=== PATIENT | female | born 1940 | race Caucasian/White ===

== ENCOUNTER 2018-12-01 23:38 | Inpatient (IN) | payer MEDICARE, OTHER ==
[~2018-12-01] VITALS: Ht 152.4 cm; Wt 69.9 kg
[2018-12-02] MEDS ORDERED: VALB40CA PO (02:30)
[2018-12-02] MEDS ORDERED: METF500T16 PO (02:30)
[2018-12-02] MEDS ORDERED: OMEG1CAP2 PO (02:30)
[2018-12-02] MEDS ORDERED: LATA2.5D3 EACHEYE (02:30)
[2018-12-02] MEDS ORDERED: ASPI-612 PO (02:30)
[2018-12-02] MEDS ORDERED: PALI3TAB2 PO (02:30)
[2018-12-02] MEDS ORDERED: RISP1TAB43 PO (02:30)
[2018-12-02] MEDS ORDERED: MELA3TAB56 PO (02:30)
[2018-12-02] MEDS ORDERED: COLE1TAB2 PO (02:30)
[2018-12-02] MEDS ORDERED: CARB15DR3 EACHEYE (02:30)
[2018-12-02] MEDS ORDERED: DONE5TAB56 PO (02:30)
[2018-12-02] MEDS ORDERED: TIOT18CA IH (02:30)
[2018-12-02] MEDS ORDERED: POLY17PO5 PO (02:30)
[2018-12-02] MEDS ORDERED: LEVO50TA5 PO (02:30)
--- NOTE | 2018-12-02 09:30 | NUR ---
Admission Note with Justification for Admission to [facility] Patient admitted to [facility] for protective oversight for emergency stabilization of acute psychiatric crisis. Pt admitted from: Home >Hospital ER Mode of arrival: EMS Accompanied By: Secure Transport Precipitating behaviors that initiated intake and admission: Description of failure of out patient attempts at stabilization in previous setting list behavior and medication trials:Risperdal Behaviors and assessment findings upon admission: Calm. Denies SI. Plan: Admit for protective oversight for adjustment and stabilization of medications, behaviors and mood. Intense treatment regimen including groups, medication adjustments, therapy, consistent regimen for ADL's, self care, and sleep hygiene. Daily monitoring by Inpatient staff, Psychiatry, and Medical Physician.
[2018-12-02 09:59] VITALS: BP 134/82
[2018-12-02] MEDS ORDERED: METHYL SALICYLATE/MENTHOL TOPICAL OINTMENT 57GM TUBE. TP PRN (11:30)
[2018-12-02] MEDS ORDERED: MAGNESIUM HYDROXIDE 2,400 MG/30 ML ORAL.SUSP. PO PRN (11:30)
[2018-12-02] MEDS ORDERED: MAG HYDROX/AL HYDROX/SIMETH 30 ML ORAL.SUSP PO PRN (11:30)
[2018-12-02] MEDS ORDERED: ACETAMINOPHEN 325 MG TABLET PO PRN (11:30)
[2018-12-02 14:51] LABS: BASO # 0.1 x10^3/uL (0.0-0.2); BASO % 1 % (0-3); EOS # 0.3 x10^3/uL (0.0-0.7); EOS % 2 % (0-3); HEMATOCRIT 35.5 % (36.0-47.0); HEMOGLOBIN 11.8 g/dL (12.0-15.5); LYMPH # 2.2 x10^3/uL (1.0-4.8); LYMPH % 15 % (24-48); MEAN CORPUSCULAR HEMOGLOBIN 31 pg (25-35); MEAN CORPUSCULAR HGB CONC 33 g/dL (31-37); MEAN CORPUSCULAR VOLUME 92 fL (79-100); MONO # 1.1 x10^3/uL (0.0-1.1); MONO % 8 % (0-9); NEUT # 10.8 x10^3uL (1.8-7.7); NEUT % 75 % (31-73); PLATELET COUNT 320 x10^3/uL (140-400); RED BLOOD COUNT 3.86 x10^6/uL (3.50-5.40); RED CELL DISTRIBUTION WIDTH 13.8 % (11.5-14.5); WHITE BLOOD COUNT 14.5 x10^3/uL (4.0-11.0)
[2018-12-02 15:06] LABS: ALBUMIN 3.5 g/dL (3.4-5.0); CALCIUM 8.8 mg/dL (8.5-10.1); GFR 53.6; MAGNESIUM 1.9 mg/dL (1.8-2.4); POTASSIUM 4.4 mmol/L (3.5-5.1); TOTAL BILIRUBIN 0.2 mg/dL (0.2-1.0)
[2018-12-02 16:58] VITALS: BP 121/73
[2018-12-02] MEDS: metFORMIN 500 MG TABLET PO SCH (17:00)
[2018-12-02] MEDS: IPRATRPIUM/ALBUTEROL 0.5/2.5MG 3 ML NEBU. NEB SCH ×3 (17:20→20:18)
[2018-12-02] MEDS: DONEPEZIL HCL 5 MG TABLET. PO SCH (19:58)
[2018-12-02] MEDS: MELATONIN 3 MG TABLET PO SCH (19:58)
[2018-12-02] MEDS: OMEGA-3 FATTY ACIDS/FISH OIL 1,000 MG CAPSULE. PO SCH (19:58)
[2018-12-02] MEDS: risperiDONE 0.5 MG TABLET. PO SCH (19:58)
[2018-12-02] MEDS: POLYVINYL ALCOHOL/POVIDONE/PF OPHTH SOLUTION DROPERETTE. OU SCH (19:59)
[2018-12-02] MEDS: COLESTIPOL HCL 1 GM TABLET PO SCH (20:00)
[2018-12-02] MEDS: LATANOPROST 0.005% OPHTH SOLUTION 2.5ML BOTTLE. OU SCH (20:00)
--- NOTE | 2018-12-02 22:00 | PDOC ---
Exam Note: Aldo Note: Please also refer to the separate dictated note~for this date of service dictated separately. Discussed the patient with Nursing staff reviewed the chart.~Reviewed interim history and current functioning. Reviewed vital signs,~Labs/ Radiology~and current medications noted below. Continue current treatment with the changes noted in the dictated addendum note Assessment: Vital Signs/I&O: Vital Signs Date Time Temp Pulse Resp B/P (MAP) Pulse Ox O2 Delivery O2 Flow Rate FiO2 12/02/18 20:19 95 Room Air 12/02/18 16:58 97.3 91 18 121/73 (89) Labs: Laboratory Tests Test 12/02/18 14:30 White Blood Count 14.5 x10^3/uL (4.0-11.0) H Red Blood Count 3.86 x10^6/uL (3.50-5.40) Hemoglobin 11.8 g/dL (12.0-15.5) L Hematocrit 35.5 % (36.0-47.0) L Mean Corpuscular Volume 92 fL (79-100) Mean Corpuscular Hemoglobin 31 pg (25-35) Mean Corpuscular Hemoglobin Concent 33 g/dL (31-37) Red Cell Distribution Width 13.8 % (11.5-14.5) Platelet Count 320 x10^3/uL (140-400) Neutrophils (%) (Auto) 75 % (31-73) H Lymphocytes (%) (Auto) 15 % (24-48) L Monocytes (%) (Auto) 8 % (0-9) Eosinophils (%) (Auto) 2 % (0-3) Basophils (%) (Auto) 1 % (0-3) Neutrophils # (Auto) 10.8 x10^3uL (1.8-7.7) H Lymphocytes # (Auto) 2.2 x10^3/uL (1.0-4.8) Monocytes # (Auto) 1.1 x10^3/uL (0.0-1.1) Eosinophils # (Auto) 0.3 x10^3/uL (0.0-0.7) Basophils # (Auto) 0.1 x10^3/uL (0.0-0.2) Sodium Level 137 mmol/L (136-145) Potassium Level 4.4 mmol/L (3.5-5.1) Chloride Level 100 mmol/L (98-107) Carbon Dioxide Level 27 mmol/L (21-32) Anion Gap 10 (6-14) Blood Urea Nitrogen 15 mg/dL (7-20) Creatinine 1.0 mg/dL (0.6-1.0) Estimated GFR (Cockcroft-Gault) 53.6 BUN/Creatinine Ratio 15 (6-20) Glucose Level 158 mg/dL (70-99) H Calcium Level 8.8 mg/dL (8.5-10.1) Magnesium Level 1.9 mg/dL (1.8-2.4) Total Bilirubin 0.2 mg/dL (0.2-1.0) Aspartate Amino Transferase (AST) 18 U/L (15-37) Alanine Aminotransferase (ALT) 22 U/L (14-59) Alkaline Phosphatase 73 U/L (46-116) Total Protein 7.0 g/dL (6.4-8.2) Albumin 3.5 g/dL (3.4-5.0) Albumin/Globulin Ratio 1.0 (1.0-1.7) Current Medications: Meds: Current Medications Medications (Trade) Dose Ordered Sig/Nicolle Route PRN Reason Start Time Stop Time Status Last Admin Dose Admin Colestipol HCl (Colestid) 2 gm BID PO 12/02/18 21:00 12/02/18 20:01 Donepezil HCl (Aricept) 5 mg QHS PO 12/02/18 21:00 12/02/18 20:01 Latanoprost (Xalatan) 1 drop QHS OU 12/02/18 21:00 12/02/18 20:01 Metformin HCl (Glucophage) 500 mg BIDWMEALS PO 12/02/18 17:00 12/02/18 18:04 Artificial Tears (Refresh Classic) 1 drop BID OU 12/02/18 21:00 12/02/18 20:01 Melatonin 6 mg QHS PO 12/02/18 21:00 12/02/18 20:01 Fish Oil (Fish Oil) 2,000 mg BID PO 12/02/18 21:00 12/02/18 20:01 Risperidone (RisperDAL) 0.5 mg BID PO 12/02/18 21:00 12/02/18 20:01 Albuterol/ Ipratropium (Duoneb) 3 ml RTQID NEB 12/02/18 12:00 12/02/18 20:19 I have reviewed the current psychotropics carefully including drug interactions. Risk benefit ratio favors no change other than as noted in my dictated progress note. Diagnosis: Problems: (1) Anxiety disorder (2) Schizoaffective disorder, chronic condition with acute exacerbation (3) Schizophrenia, paranoid, chronic with acute exacerbation (4) Impulse control disorder KJ PIEDRA MD Dec 02, 2018 22:00
--- NOTE | 2018-12-02 22:54 | NUR ---
Nursing Note Pt isolates to room, is pleasant and cooperative, denies hallucinations med compliant.
[2018-12-03 01:12] LABS: THYROXINE 6.7 ug/dL (4.5-12.0)
[2018-12-03] MEDS: LEVOTHYROXINE 50 MCG TABLET PO SCH (05:02)
[2018-12-03] MEDS: IPRATRPIUM/ALBUTEROL 0.5/2.5MG 3 ML NEBU. NEB SCH ×2 (05:06→10:33)
[2018-12-03 05:30] VITALS: BP 139/82
[2018-12-03] MEDS: OMEGA-3 FATTY ACIDS/FISH OIL 1,000 MG CAPSULE. PO SCH ×2 (07:49→20:14)
[2018-12-03] MEDS: risperiDONE 0.5 MG TABLET. PO SCH ×3 (07:49→20:14)
[2018-12-03] MEDS: metFORMIN 500 MG TABLET PO SCH ×2 (07:49→17:00)
[2018-12-03] MEDS: POLYVINYL ALCOHOL/POVIDONE/PF OPHTH SOLUTION DROPERETTE. OU SCH ×2 (07:49→20:14)
[2018-12-03] MEDS: POLYETHYLENE GLYCOL 3350 17 GM PACKET. PO SCH (07:55)
[2018-12-03] MEDS: ASPIRIN ENTERIC COATED 81 MG TABLET.DR. PO SCH (07:55)
[2018-12-03] MEDS: risperiDONE 1 MG TABLET. PO SCH (08:01)
[2018-12-03] MEDS: COLESTIPOL HCL 1 GM TABLET PO SCH ×2 (08:01→20:15)
[2018-12-03] MEDS ORDERED: FLU VAX QS 2019-20 (36MOS+)/PF 0.5 ML SYRINGE. VAX IM ONE ×2 (09:00)
[2018-12-03] MEDS ORDERED: NON FORMULARY ITEM (Tiotropium Bromide (Spiriva) 18 MCG) IH SCH (09:00)
[2018-12-03] MEDS ORDERED: VALBENAZINE TOSYLATE 40 MG PO SCH (09:00)
[2018-12-03 11:16] LABS: THYROID STIM HORMONE (TSH) 0.794 uIU/mL (0.358-3.740)
[2018-12-03] MEDS ORDERED: IPRATRPIUM/ALBUTEROL 0.5/2.5MG 3 ML NEBU. NEB PRN (13:15)
--- NOTE | 2018-12-03 13:37 | CONS ---
DATE OF CONSULTATION: 12/03/2018 ATTENDING PHYSICIAN: Dr. Scott. REASON FOR CONSULTATION: We are asked to see this patient for medical consultation and clearance. HISTORY OF PRESENT ILLNESS: The patient is aged 78. She was sent here from [facility] in [place], [place]. She has been a resident there with underlying dementia and schizoaffective disorder. She is a little more agitated. She started to hear voices telling her to do things. She is confused. She is bright, but maybe a little manic and going off on tangents. We are asked to see this for medical evaluation. PAST MEDICAL HISTORY: Significant for longstanding schizoaffective disorder. She has had some tardive dyskinesia from previous meds. She has type 2 diabetes, nonspecific emphysema, essential hypertension, generalized anxiety disorder, and debilitation. SOCIAL HISTORY: She is a smoker. She denies any alcohol use. FAMILY HISTORY: Unobtainable. MEDICATIONS: Include paliperidone, risperidone, Spiriva, Colestid, Lovaza, and metformin. She is also on aspirin, Aricept, Ingrezza, Synthroid, melatonin, and MiraLax. ALLERGIES: She has no recorded drug allergies. DIET: She follows a diabetic diet. REVIEW OF SYSTEMS: Unobtainable due to the patient's mental state. PHYSICAL EXAMINATION: GENERAL: When I saw her, this is a very pleasant, elderly female who is in no acute distress. VITAL SIGNS: She is afebrile. Vital signs on the database. Her heart rate is 80 and regular. HEENT EXAM: Head is without trauma. Pupils are reactive. Sclerae nonicteric. Oropharynx clear. I did not appreciate any significant buccal lingual movement given the history. NECK: Supple, no bruits. LUNGS: Otherwise clear. CARDIOVASCULAR EXAM: Showed regular heart tones. No obvious gallops. Peripheral pulses are palpable and full. ABDOMEN: Soft, scaphoid, nontender, no organomegaly. Bowel sounds are hypoactive. EXTREMITIES: Showed no cyanosis or edema. NEUROLOGIC FINDINGS: Focally intact. Speech is fluent. She is not aware of person, place, or time. PERTINENT LABORATORY STUDIES: Reviewed. On admission, she had a hemoglobin of 11.4 g/dL, white count was 14,000. Her electrolytes, BUN, and creatinine were within normal range. ASSESSMENT 1. This 78-year-old female who has longstanding schizoaffective disorder. 2. Psychosis with agitation. 3. Dementia, longstanding. 4. Type 2 diabetes. 5. Essential hypertension. RECOMMENDATIONS 1. Continue home meds as ordered. 2. I have no new recommendations. She is stable from a medical standpoint. 3. We should gladly follow along during her inpatient stay. Thank you again for asking me to see this patient for medical clearance. CARMELA LAWLER MD DR: TASIA/chico JOB#: [id number] / [id number] BETHANIE Levine MD
[2018-12-03 15:52] VITALS: BP 136/84
--- NOTE | 2018-12-03 17:16 | HP ---
ADMIT DATE: 12/02/2018 PSYCHIATRIC ADMISSION HISTORY AND EVALUATION This late entry, 12/02/2018, covers elements not covered in my initial note. The patient was seen individually evening of 12/02/2018 for this evaluation. IDENTIFYING DATA: The patient is a 78-year-old female referred to us from [facility] where she presented from [facility] on account of auditory hallucinations telling her to kill herself and others. She was having marked insomnia, has been extremely anxious. Reportedly, the patient states she has had a lifelong history of schizoaffective disorder versus schizophrenia and has been at the [facility] in the and over the years, she feels she has done best on Invega as an antipsychotic. CHIEF COMPLAINT: "Yes, these voices are telling me to do things to kill myself and others." HISTORY OF PRESENT ILLNESS: The patient reportedly has a long history of schizoaffective disorder versus schizophrenia, chronic paranoid type. She had been living at home with her daughter, but recently moved to [facility]. Over the last several days, she has had worsening active hallucinations, command hallucinations telling her to hurt herself and others. She has had sleep and appetite changes, worsening paranoia, confusion and therefore the referral to the ER and then to us. PAST PSYCHIATRIC HISTORY: As noted above including state hospitalizations at [facility] in the . PAST MEDICAL HISTORY: Positive for tardive dyskinesia, diabetes mellitus, closed head injury in 1990, hypertension, osteoarthritis, hyperlipidemia, emphysema, cataract. ACCU-CHEKS: Daily. DIET: Regular. Ambulates ad niki. CODE STATUS: Full code. DRUG ALLERGIES: Negative. UA on 12/01/2018 negative at [facility]. CURRENT PSYCHOTROPICS: Aricept 5 mg a day, Ingrezza 40 mg a day and we will substitute this per pharmacy recommendation since this is not available at our facility. Melatonin 6 mg at bedtime, Risperdal 1 mg daily, Invega 1.5 mg daily, Zyprexa p.r.n., trazodone p.r.n. FAMILY HISTORY: Noncontributory. SOCIAL HISTORY: No alcohol, drug abuse, physical, sexual or elder abuse. She is not known to be a perpetrator. She states she has 1 son living in [place], [place] and the daughter living in [place], [place] and then another daughter with whom she was living in [place] before moving to the nursing facility because of problems interacting with the daughter. REACTION TO HOSPITALIZATION: The patient accepting of it. ASSETS: Supportive family, stable living at the facility, reasonably cognitively intact. MENTAL STATUS EXAMINATION: The patient was seen individually evening of 12/02/2018. She is reasonably oriented and I met with her the evening of 12/02/2018 in her room at length. Speech coherent. Thought processes goal directed. Intellect average. Insight good. Judgment intact. She admits to the hallucinations, but denies any active suicidal or homicidal ideation. Attention span short. Language function intact. LABORATORY DATA: Reviewed. IMPRESSION: Schizoaffective disorder, bipolar type, mixed with psychotic features; anxiety disorder, unspecified; impulse control disorder, unspecified. Rest as above. PLAN: Admit to Geropsychiatry Unit at [facility]. I will see the patient daily individually from a psychiatric standpoint. Medical followup with Dr. Milner. We will continue the patient on her current medications and probable plan would be to increase the Invega to reach a therapeutic level and discontinue the Risperdal. Adjust the Aricept. Consider adding Depakote as a mood stabilizer. We will get past psychiatric records from her prior outpatient and inpatient psychiatric hospitalizations. Estimated length of stay 10-12 days. DISCHARGE PLANS: [facility]. MAN Sukhi PIEDRA MD DR: WEI/chico JOB#: [id number] / [id number]
--- NOTE | 2018-12-03 17:39 | NUR ---
Pt up adl to meals. Received flu shot today in L deltoid. Has been withdrawn to room at times. Has denied SI today.
[2018-12-03] MEDS: MELATONIN 3 MG TABLET PO SCH (20:14)
[2018-12-03] MEDS: LATANOPROST 0.005% OPHTH SOLUTION 2.5ML BOTTLE. OU SCH (20:15)
[2018-12-03] MEDS: DONEPEZIL HCL 5 MG TABLET. PO SCH (20:15)
--- NOTE | 2018-12-03 23:00 | PDOC ---
Exam Note: Aldo Note: Please also refer to the separate dictated note~for this date of service dictated separately.~Patient seen individually. Discussed the patient with Nursing staff reviewed the chart.~Reviewed interim history and current functioning. Reviewed vital signs,~Labs/ Radiology~and current medications noted below. Continue current treatment with the changes noted in the dictated addendum note Assessment: Vital Signs/I&O: Vital Signs Date Time Temp Pulse Resp B/P (MAP) Pulse Ox O2 Delivery O2 Flow Rate FiO2 12/03/18 15:52 98.0 88 18 136/84 (101) 96 12/03/18 05:06 Room Air I & O 12/02/18 12/02/18 12/03/18 15:00 23:00 07:00 Intake Total 720 ml 240 ml Balance 720 ml 240 ml Current Medications: Meds: Current Medications Medications (Trade) Dose Ordered Sig/Nicolle Route PRN Reason Start Time Stop Time Status Last Admin Dose Admin Aspirin (Aspirin Enteric Coated) 81 mg DAILY PO 12/03/18 09:00 12/03/18 07:55 Levothyroxine Sodium (Synthroid) 50 mcg DAILY06 PO 12/03/18 06:00 12/03/18 05:02 Polyethylene Glycol (miraLAX) 17 gm DAILY PO 12/03/18 09:00 12/03/18 07:55 Risperidone (RisperDAL) 1 mg DAILY PO 12/03/18 09:00 12/03/18 08:01 Influenza Virus Vaccine Quadrival (Afluria Quad 2019-20 (3yr Up) Syringe) 0.5 ml ONCE ONCE VAX IM 12/03/18 09:00 12/03/18 09:01 DC 12/03/18 11:14 I have reviewed the current psychotropics carefully including drug interactions. Risk benefit ratio favors no change other than as noted in my dictated progress note. Diagnosis: Problems: (1) Anxiety disorder (2) Schizoaffective disorder, chronic condition with acute exacerbation (3) Schizophrenia, paranoid, chronic with acute exacerbation (4) Impulse control disorder KJ PIEDRA MD Dec 03, 2018 23:00
[2018-12-04] MEDS: LEVOTHYROXINE 50 MCG TABLET PO SCH (05:12)
[2018-12-04 06:12] VITALS: BP 107/73
[2018-12-04] MEDS: POLYETHYLENE GLYCOL 3350 17 GM PACKET. PO SCH (07:43)
[2018-12-04] MEDS: ASPIRIN ENTERIC COATED 81 MG TABLET.DR. PO SCH (07:44)
[2018-12-04] MEDS: POLYVINYL ALCOHOL/POVIDONE/PF OPHTH SOLUTION DROPERETTE. OU SCH ×2 (07:44→20:07)
[2018-12-04] MEDS: risperiDONE 1 MG TABLET. PO SCH (07:44)
[2018-12-04] MEDS: risperiDONE 0.5 MG TABLET. PO SCH ×2 (07:44→20:07)
[2018-12-04] MEDS: metFORMIN 500 MG TABLET PO SCH ×2 (07:44→17:00)
[2018-12-04] MEDS: OMEGA-3 FATTY ACIDS/FISH OIL 1,000 MG CAPSULE. PO SCH ×2 (07:44→20:07)
[2018-12-04] MEDS: COLESTIPOL HCL 1 GM TABLET PO SCH ×2 (07:46→20:07)
[2018-12-04 15:53] VITALS: BP 101/69
--- NOTE | 2018-12-04 17:55 | NUR ---
Pt up to meals. Withdrawn to room at times. Compliant with meds and cares.
[2018-12-04] MEDS: MELATONIN 3 MG TABLET PO SCH (20:07)
[2018-12-04] MEDS: DONEPEZIL HCL 5 MG TABLET. PO SCH (20:07)
[2018-12-04] MEDS: LATANOPROST 0.005% OPHTH SOLUTION 2.5ML BOTTLE. OU SCH (20:08)
--- NOTE | 2018-12-04 21:36 | PDOC ---
Exam Note: Aldo Note: Please also refer to the separate dictated note~for this date of service dictated separately.~Patient seen individually. Discussed the patient with Nursing staff reviewed the chart.~Reviewed interim history and current functioning. Reviewed vital signs,~Labs/ Radiology~and current medications noted below. Continue current treatment with the changes noted in the dictated addendum note Assessment: Vital Signs/I&O: Vital Signs Date Time Temp Pulse Resp B/P (MAP) Pulse Ox O2 Delivery O2 Flow Rate FiO2 12/04/18 15:53 97.9 115 20 101/69 (80) 97 12/03/18 05:06 Room Air I & O 12/03/18 12/03/18 12/04/18 15:00 23:00 07:00 Intake Total 1080 ml 480 ml Balance 1080 ml 480 ml Current Medications: I have reviewed the current psychotropics carefully including drug interactions. Risk benefit ratio favors no change other than as noted in my dictated progress note. Diagnosis: Problems: (1) Anxiety disorder (2) Schizoaffective disorder, chronic condition with acute exacerbation (3) Schizophrenia, paranoid, chronic with acute exacerbation (4) Impulse control disorder KJ PIEDRA MD Dec 04, 2018 21:36
--- NOTE | 2018-12-05 01:29 | NUR ---
Nursing Note. Pt pleasant and cooperative, no SI this pm or or hallucinations. Med compliant.
[2018-12-05] MEDS: LEVOTHYROXINE 50 MCG TABLET PO SCH (03:35)
[2018-12-05 06:05] VITALS: BP 103/70
[2018-12-05] MEDS: POLYETHYLENE GLYCOL 3350 17 GM PACKET. PO SCH (10:55)
[2018-12-05] MEDS: risperiDONE 1 MG TABLET. PO SCH (10:56)
[2018-12-05] MEDS: metFORMIN 500 MG TABLET PO SCH ×2 (10:56→16:46)
[2018-12-05] MEDS: OMEGA-3 FATTY ACIDS/FISH OIL 1,000 MG CAPSULE. PO SCH ×2 (10:56→19:46)
[2018-12-05] MEDS: ASPIRIN ENTERIC COATED 81 MG TABLET.DR. PO SCH (10:56)
[2018-12-05] MEDS: POLYVINYL ALCOHOL/POVIDONE/PF OPHTH SOLUTION DROPERETTE. OU SCH ×2 (10:56→19:46)
[2018-12-05] MEDS: COLESTIPOL HCL 1 GM TABLET PO SCH ×2 (10:57→19:48)
--- NOTE | 2018-12-05 11:09 | NUR ---
SW spoke to Maria Esther, nurse at [facility], regarding two medications we are unable to get for pt. Maria Esther stated she would look into what they are able to do at their end and get back to us.
--- NOTE | 2018-12-05 11:30 | NUR ---
ACTIVITY THERAPY ASSESSMENT Completed based on interview. Pt. was laying in bed but agreeable to speak with DYE MAKER. The two walked to the dining room and when on the way, Pt. shared she lays around and walks that hallways most of the time, when asked about her leisure interests/hobbies. As the conversation continued, she fondly recalled writing poetry/ diary when she was younger. She also used to enjoy painting. Later in the conversation, DYE MAKER asked her about of leisure interests and she explained she hates cards, her TV is usually off, she will socialize with peers at meals at her facility, likes classical music, and talks to her sister on the phone. When asked about stress in her life, she said it's mainly from her daughter, Dian. She didn't recall signing papers to have Dian as POA of medications. She talked about how Dian won't let Pt's eldest daughter, take her out of her facility for a restaurant date or a short hotel stay to get a break from the facility. Pt. talked about how she does not want to go back to live with Dian and shared that she will cuss at her often. When asked why brought her here, she paused and explained she threatened suicide and "meant business." She went on to say there were"so many things going against" her and she was having trouble sleeping. Pt. has been withdrawn to room and has limited interest but listened and talked with DYE MAKER about relaxation techniques. She encouraged group participation for learning opportunities and socialization. Pt. seemed open to the idea. Initial goal aimed to increase relaxation techniques: Pt. will participate in at least five Activity Therapy group or individual sessions, focused on relaxation, before discharge.
--- NOTE | 2018-12-05 12:56 | NUR ---
LYDIA received a call from Dian, pt. daughter, stating she would be bringing pt. clothing and two medications requested by hospital staff. LYDIA had received permission earlier in the day to contact Dian if needed. Pt. daughter did not have the pass code so no information was supplied. LYDIA then spoke to pt. regarding Dian needing the pass code if she would like for her to visit or call for updates. Pt. agreed to see her daughter and is willing to give her daughter the pass code for future communications
[2018-12-05 15:59] VITALS: BP 116/78
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
--- NOTE | 2018-12-05 18:26 | NUR ---
Pt calm, compliant with meds and assessment. Pt denies si/hi. Pt states that she has never wanted to hurt anyone, or herself. She said that she feels like she would be better if she could get rid of the "controllers" in her head. Pt said her brother knows what she is talking about. Pt states voices told her they werent going anywhere and that she was just going to have to deal with them.
[2018-12-05] MEDS: MELATONIN 3 MG TABLET PO SCH (19:46)
[2018-12-05] MEDS: risperiDONE 0.5 MG TABLET. PO SCH (19:46)
[2018-12-05] MEDS: DONEPEZIL HCL 5 MG TABLET. PO SCH (19:46)
[2018-12-05] MEDS: LATANOPROST 0.005% OPHTH SOLUTION 2.5ML BOTTLE. OU SCH (19:48)
[2018-12-05] MEDS: PALIPERIDONE 1.5 MG PO SCH (19:50)
--- NOTE | 2018-12-05 21:39 | PDOC ---
Exam Note: Aldo Note: Please also refer to the separate dictated note~for this date of service dictated separately.~Patient seen individually. Discussed the patient with Nursing staff reviewed the chart.~Reviewed interim history and current functioning. Reviewed vital signs,~Labs/ Radiology~and current medications noted below. Continue current treatment with the changes noted in the dictated addendum note Assessment: Vital Signs/I&O: Vital Signs Date Time Temp Pulse Resp B/P (MAP) Pulse Ox O2 Delivery O2 Flow Rate FiO2 12/05/18 15:59 97.1 88 18 116/78 (91) 94 12/03/18 05:06 Room Air I & O 12/04/18 12/04/18 12/05/18 15:00 23:00 07:00 Intake Total 600 ml 360 ml 240 ml Balance 600 ml 360 ml 240 ml Current Medications: Meds: Current Medications Medications (Trade) Dose Ordered Sig/Nicolle Route PRN Reason Start Time Stop Time Status Last Admin Dose Admin Non-Formulary Medication 1 ea Taper BID PO 12/05/18 21:00 12/09/18 20:59 12/05/18 19:51 I have reviewed the current psychotropics carefully including drug interactions. Risk benefit ratio favors no change other than as noted in my dictated progress note. Diagnosis: Problems: (1) Anxiety disorder (2) Schizoaffective disorder, chronic condition with acute exacerbation (3) Schizophrenia, paranoid, chronic with acute exacerbation (4) Impulse control disorder KJ PIEDRA MD Dec 05, 2018 21:38
--- NOTE | 2018-12-05 23:50 | NUR ---
Nursing Note Pt pleasant and cooperative. Denies pain or other complaints. Tolerates PO meds well.
--- NOTE | 2018-12-06 01:52 | PN ---
DATE: 12/04/2018 PSYCHIATRIC PROGRESS NOTE This late entry 12/04/2018 covers elements not covered in my initial note. SUBJECTIVE: I met with the patient evening of 12/04/2018. The patient slept 7-3/4 hours previous night. She has been withdrawn, somewhat isolative, but denies active suicidal ideation. She remains a little paranoid. We are still trying to get her outpatient medications to restart the Invega. REVIEW OF SYSTEMS: No CV, , pulmonary, eye, ENT system symptoms on review. Reliability fair. MENTAL STATUS EXAMINATION: Reasonably oriented. Speech is coherent, has some latency. Abstraction fair, computation impaired, language function intact. Mood and affect withdrawn. LABORATORY DATA: Reviewed. IMPRESSION: Unchanged from initial note. PLAN: No change from initial note and consider Depakote as a mood stabilizer at some point. MAN Sukhi PIEDRA MD DR: WEI/chico JOB#: [id number] / [id number]
--- NOTE | 2018-12-06 03:07 | PN ---
DATE: 12/03/2018 PSYCHIATRIC PROGRESS NOTE This late entry 12/03/2018 covers elements not covered in my initial note. SUBJECTIVE: I met with the patient in the evening. The patient has been isolative. Denies suicidal ideation. No active hallucinations. I met with her in her room at length. REVIEW OF SYSTEMS: No CV, , pulmonary, eye, ENT system symptoms on review. Does admit to some tiredness. MENTAL STATUS EXAMINATION: Reasonably oriented. Speech is coherent, abstraction fair, computation impaired, language function intact. No active suicidal ideation. She is a little paranoid at times. On further questioning, she states she did best on Invega. We do not have this available at the facility and family have been asked to get her outpatient medications if they can. LABORATORY DATA: Reviewed. IMPRESSION: Schizoaffective disorder, bipolar type, mixed with psychotic features, mild cognitive impairment. PLAN: We will restart Invega, increase gradually to 3 mg b.i.d. and perhaps higher dosage and gradually taper down the Risperdal as we increase the Invega and ultimately stop the Risperdal. She may also need to be on a mood stabilizer at some point for schizoaffective disorder, bipolar type. MAN Sukhi PIEDRA MD DR: WEI/chico JOB#: [id number] / [id number]
[2018-12-06] MEDS: LEVOTHYROXINE 50 MCG TABLET PO SCH (04:51)
[2018-12-06 06:35] VITALS: BP 104/58
[2018-12-06] MEDS: OMEGA-3 FATTY ACIDS/FISH OIL 1,000 MG CAPSULE. PO SCH ×2 (09:24→21:19)
[2018-12-06] MEDS: risperiDONE 1 MG TABLET. PO SCH (09:24)
[2018-12-06] MEDS: ASPIRIN ENTERIC COATED 81 MG TABLET.DR. PO SCH (09:24)
[2018-12-06] MEDS: POLYETHYLENE GLYCOL 3350 17 GM PACKET. PO SCH (09:26)
[2018-12-06] MEDS: metFORMIN 500 MG TABLET PO SCH ×2 (09:26→16:53)
[2018-12-06] MEDS: COLESTIPOL HCL 1 GM TABLET PO SCH ×2 (09:26→21:22)
[2018-12-06] MEDS: PALIPERIDONE 1.5 MG PO SCH (09:27)
[2018-12-06] MEDS: POLYVINYL ALCOHOL/POVIDONE/PF OPHTH SOLUTION DROPERETTE. OU SCH ×2 (09:32→21:18)
--- NOTE | 2018-12-06 12:52 | NUR ---
LYDIA left message for Iris, Color [employer] Machine Tender at [facility], to discuss pt. Addendum: 12/07/18 at 1202 by NATALIA FREEMAN LYDIA spoke to Iris, who reported pt. was relocated to another room. Pt. had trouble with her roommate due to the TV being left on all night, and pt. was unable to sleep. LYDIA shared this information with pt. who was very grateful.
[2018-12-06 16:53] VITALS: BP 123/86
--- NOTE | 2018-12-06 18:00 | NUR ---
Patient calm, compliant, and coherent. She participated in morning group, otherwise was usually withdrawn to her room between meals. Will continue to monitor.
[2018-12-06] MEDS: DONEPEZIL HCL 5 MG TABLET. PO SCH (21:19)
[2018-12-06] MEDS: MELATONIN 3 MG TABLET PO SCH (21:19)
[2018-12-06] MEDS: LATANOPROST 0.005% OPHTH SOLUTION 2.5ML BOTTLE. OU SCH (21:21)
[2018-12-06] MEDS: DIVALPROEX ER 500 MG TAB.ER.24H PO SCH (21:21)
--- NOTE | 2018-12-06 22:00 | PDOC ---
Exam Note: Aldo Note: Please also refer to the separate dictated note~for this date of service dictated separately.~Patient seen individually. Discussed the patient with Nursing staff reviewed the chart.~Reviewed interim history and current functioning. Reviewed vital signs,~Labs/ Radiology~and current medications noted below. Continue current treatment with the changes noted in the dictated addendum note Assessment: Vital Signs/I&O: Vital Signs Date Time Temp Pulse Resp B/P (MAP) Pulse Ox O2 Delivery O2 Flow Rate FiO2 12/06/18 16:53 97.6 103 18 123/86 (98) 95 12/03/18 05:06 Room Air I & O 12/05/18 12/05/18 12/06/18 14:59 22:59 06:59 Intake Total 720 ml 240 ml 100 ml Balance 720 ml 240 ml 100 ml Current Medications: Meds: Current Medications Medications (Trade) Dose Ordered Sig/Nicolle Route PRN Reason Start Time Stop Time Status Last Admin Dose Admin Non-Formulary Medication (Valbenazine Tosylate (Ingrezza)) 40 mg DAILY PO 12/06/18 09:00 12/06/18 09:32 Divalproex Sodium (Depakote Er) 500 mg QHS PO 12/06/18 21:00 12/06/18 21:22 I have reviewed the current psychotropics carefully including drug interactions. Risk benefit ratio favors no change other than as noted in my dictated progress note. Diagnosis: Problems: (1) Anxiety disorder (2) Schizoaffective disorder, chronic condition with acute exacerbation (3) Schizophrenia, paranoid, chronic with acute exacerbation (4) Impulse control disorder KJ PIEDRA MD Dec 06, 2018 22:00
--- NOTE | 2018-12-06 23:18 | PN ---
DATE: 12/05/2018 PSYCHIATRIC PROGRESS NOTE This late entry 12/05/2018 covers elements not covered in my initial note. SUBJECTIVE: I met with the patient evening of 12/05/2018. The patient has been calm, compliant. I met with her in her room at length. She denies suicidal ideation, but does complain of some voices in her head. Dr. Valdes is seeing her from a neurological standpoint for the valbenazine that she takes for her tardive dyskinesia. She slept poorly previous night and we will go ahead and add Remeron 7.5 mg p.o. at bedtime. REVIEW OF SYSTEMS: No CV, , pulmonary, eye system symptoms on review. MENTAL STATUS EXAM: The patient is reasonably oriented. Speech has some latency, coherent. Abstraction fair, computation impaired, language function intact. Attention span short. Mood and affect somewhat withdrawn. LABORATORY DATA: Reviewed. IMPRESSION: Schizoaffective disorder, bipolar type, mixed with psychotic features, mild cognitive impairment. Rest unchanged. PLAN: Maintain Aricept 5 mg at bedtime, may need to increase this. Continue valbenazine 40 mg a day, melatonin 6 mg at bedtime. Risperdal will be discontinued as she is back on Invega, which we will increase gradually to perhaps up to 6-12 mg a day. May also consider Depakote as a mood stabilizer. Adjust further as clinically indicated. MAN Sukhi PIEDRA MD DR: WEI/chico JOB#: [id number] / [id number]
--- NOTE | 2018-12-07 03:20 | NUR ---
Nsg Note: Patient was compliant with HS medications. She was in her room in bed sleeping and woke up to take them. Patient went back to sleep shortly after this and has been sleeping since. No notable behaviors at this time.
[2018-12-07] MEDS: LEVOTHYROXINE 50 MCG TABLET PO SCH (06:14)
[2018-12-07 06:35] VITALS: BP 101/57
[2018-12-07] MEDS: ASPIRIN ENTERIC COATED 81 MG TABLET.DR. PO SCH (07:59)
[2018-12-07] MEDS: metFORMIN 500 MG TABLET PO SCH ×2 (07:59→17:05)
[2018-12-07] MEDS: OMEGA-3 FATTY ACIDS/FISH OIL 1,000 MG CAPSULE. PO SCH ×2 (07:59→20:05)
[2018-12-07] MEDS: POLYVINYL ALCOHOL/POVIDONE/PF OPHTH SOLUTION DROPERETTE. OU SCH ×2 (08:00→20:04)
[2018-12-07] MEDS: POLYETHYLENE GLYCOL 3350 17 GM PACKET. PO SCH (08:00)
[2018-12-07] MEDS: COLESTIPOL HCL 1 GM TABLET PO SCH ×2 (08:00→20:06)
[2018-12-07] MEDS: PALIPERIDONE 1.5 MG PO SCH (08:07)
--- NOTE | 2018-12-07 15:49 | NUR ---
Patient has been calm, compliant, and coherent. Patient stated that she hears voices all the time, and that it feels like something is moving in her mind. She states that there are controllers, and that some of them can enter minds. Some of these controllers help, and others hinder people. Hallucinations are not causing acute distress or behavioral disturbances. She participated in morning group and sat outside on the patio after lunch. Will continue to monitor.
[2018-12-07 17:05] VITALS: BP 132/82
[2018-12-07] MEDS: DIVALPROEX ER 500 MG TAB.ER.24H PO SCH (20:04)
[2018-12-07] MEDS: MELATONIN 3 MG TABLET PO SCH (20:04)
[2018-12-07] MEDS: DONEPEZIL HCL 5 MG TABLET. PO SCH (20:06)
[2018-12-07] MEDS: LATANOPROST 0.005% OPHTH SOLUTION 2.5ML BOTTLE. OU SCH (20:08)
--- NOTE | 2018-12-07 21:44 | PDOC ---
Exam Note: Aldo Note: Please also refer to the separate dictated note~for this date of service dictated separately.~Patient seen individually. Discussed the patient with Nursing staff reviewed the chart.~Reviewed interim history and current functioning. Reviewed vital signs,~Labs/ Radiology~and current medications noted below. Continue current treatment with the changes noted in the dictated addendum note Assessment: Vital Signs/I&O: Vital Signs Date Time Temp Pulse Resp B/P (MAP) Pulse Ox O2 Delivery O2 Flow Rate FiO2 12/07/18 17:05 97.7 81 20 132/82 (99) 95 12/03/18 05:06 Room Air I & O 12/06/18 12/06/18 12/07/18 15:00 23:00 07:00 Intake Total 600 ml 560 ml Balance 600 ml 560 ml Current Medications: Meds: Current Medications Medications (Trade) Dose Ordered Sig/Nicolle Route PRN Reason Start Time Stop Time Status Last Admin Dose Admin Non-Formulary Medication 2 ea Taper DAILY PO 12/07/18 09:00 02/07/19 08:59 12/07/18 08:07 I have reviewed the current psychotropics carefully including drug interactions. Risk benefit ratio favors no change other than as noted in my dictated progress note. Diagnosis: Problems: (1) Anxiety disorder (2) Schizoaffective disorder, chronic condition with acute exacerbation (3) Schizophrenia, paranoid, chronic with acute exacerbation (4) Impulse control disorder KJ PIEDRA MD Dec 07, 2018 21:44
--- NOTE | 2018-12-07 23:30 | NUR ---
Nursing note: Assumed care of pt in her room where she was awake in bed. She was compliant and pleasant. No c/o pain, pt A&OX4.
--- NOTE | 2018-12-08 02:47 | PN ---
DATE: 12/06/2018 PSYCHIATRIC PROGRESS NOTE This late entry 12/06/2018 covers the elements not covered in my initial note. SUBJECTIVE: I met with the patient in the evening of 12/06/2018. The patient slept 10 hours previous night. She attended groups in the morning, but none in the afternoon. Somewhat withdrawn. Reviewed her past history, reflective of schizoaffective disorder, bipolar type and she is on no mood stabilizers at this time. REVIEW OF SYSTEMS: No CV, , pulmonary, eye, ENT system symptoms on review. Reliability varies. MENTAL STATUS EXAM: Reasonably oriented. Speech is coherent, has some latency. Abstraction fair, computation impaired, language function intact, attention span short. Mood and affect somewhat withdrawn at times. LABORATORY DATA: Reviewed. IMPRESSION: Schizoaffective disorder, bipolar type, mixed with psychotic features, mild cognitive impairment. Rest unchanged. PLAN: Stop the Risperdal, increase Invega to 3 mg a day for 3 days, then 6 mg a day thereafter. Start Depakote ER 500 mg p.o. at bedtime as a mood stabilizer. Check CBC, CMP, valproic acid level in 3 days. Rest unchanged for now. MAN Sukhi PIEDRA MD DR: WEI/chico JOB#: [id number] / [id number]
[2018-12-08] MEDS: LEVOTHYROXINE 50 MCG TABLET PO SCH (05:49)
[2018-12-08 06:28] VITALS: BP 120/80
[2018-12-08] MEDS: OMEGA-3 FATTY ACIDS/FISH OIL 1,000 MG CAPSULE. PO SCH ×2 (08:47→20:02)
[2018-12-08] MEDS: ASPIRIN ENTERIC COATED 81 MG TABLET.DR. PO SCH (08:47)
[2018-12-08] MEDS: metFORMIN 500 MG TABLET PO SCH ×2 (08:47→17:10)
[2018-12-08] MEDS: COLESTIPOL HCL 1 GM TABLET PO SCH ×2 (08:48→20:02)
[2018-12-08] MEDS: POLYETHYLENE GLYCOL 3350 17 GM PACKET. PO SCH (08:48)
[2018-12-08] MEDS: POLYVINYL ALCOHOL/POVIDONE/PF OPHTH SOLUTION DROPERETTE. OU SCH ×2 (08:48→20:00)
[2018-12-08] MEDS: PALIPERIDONE 1.5 MG PO SCH (08:51)
--- NOTE | 2018-12-08 09:43 | NUR ---
WEEKLY ACTIVITY THERAPY NOTE Date of Admission: 12/02/2018 Date of AT Assessment:12/05/2018 Goal aimed: to increase relaxation techniques Initial Goal: Pt. will participate in at least five Activity Therapy group or individual sessions, focused on relaxation, before discharge. Weekly progress towards goal: 2/ (12/03- Dottie Show, 12/07- Patio time) Group participation level: minimal Weekly highlights: moderate in one group, answering trivia unprompted Behaviors observed: in and out of groups early/ late, calm and quiet usually Plan: no change to goal Beneficial adaptations: schedule of activities
--- NOTE | 2018-12-08 10:00 | NUR ---
Nursing Note: Pt calm, compliant w/ meds whole, denied SI/HI. Reported that she hears male voices in her head telling her that she is worthless. Pt reports that she is able to resist if voices command her to hurt herself.
--- NOTE | 2018-12-08 14:52 | NUR ---
WEEKLY NOTE Pt. eats an average of 75% to 100% of meals and sleeps an average of 6 hours. Pt. is alert and oriented X4. Pt. is complaint with medications and cooperative with cares. Nursing reports pt. is at her baseline bother functionally and physically. Pt. has been somewhat withdrawn but will participate in groups when invited. Pt. is scheduled to discharge back to [facility] the end of next week.
[2018-12-08 15:40] VITALS: BP 125/85
--- NOTE | 2018-12-08 18:05 | NUR ---
Regarding Invega. Family has been providing the Invega and our supply from them has run out. They are unwilling to provide more, they live in [place] per conversation with LYDIA Benítez. Per Dr. Scott patient is unable to take ANY Risperdal as she has Tardive Dyskinesia. All Risperdal has been stopped. Nurse spoke with Nichol in pharmacy about needing medication to be Invega. Nichol is checking into it and will follow up with nurse caring for Patient. Order: Invega 6mg daily per Dr. Scott/Yo PIÑA
[2018-12-08] MEDS: DONEPEZIL HCL 5 MG TABLET. PO SCH (20:01)
[2018-12-08] MEDS: MELATONIN 3 MG TABLET PO SCH (20:01)
[2018-12-08] MEDS: LATANOPROST 0.005% OPHTH SOLUTION 2.5ML BOTTLE. OU SCH (20:01)
[2018-12-08] MEDS: DIVALPROEX ER 500 MG TAB.ER.24H PO SCH (20:02)
--- NOTE | 2018-12-08 21:51 | PDOC ---
Exam Note: Aldo Note: Please also refer to the separate dictated note~for this date of service dictated separately.~Patient seen individually. Discussed the patient with Nursing staff reviewed the chart.~Reviewed interim history and current functioning. Reviewed vital signs,~Labs/ Radiology~and current medications noted below. Continue current treatment with the changes noted in the dictated addendum note Assessment: Vital Signs/I&O: Vital Signs Date Time Temp Pulse Resp B/P (MAP) Pulse Ox O2 Delivery O2 Flow Rate FiO2 12/08/18 15:40 98.4 100 18 125/85 (98) 99 12/03/18 05:06 Room Air I & O 12/07/18 12/07/18 12/08/18 15:00 23:00 07:00 Intake Total 600 ml 480 ml 240 ml Balance 600 ml 480 ml 240 ml Current Medications: I have reviewed the current psychotropics carefully including drug interactions. Risk benefit ratio favors no change other than as noted in my dictated progress note. Diagnosis: Problems: (1) Anxiety disorder (2) Schizoaffective disorder, chronic condition with acute exacerbation (3) Schizophrenia, paranoid, chronic with acute exacerbation (4) Impulse control disorder KJ PIEDRA MD Dec 08, 2018 21:51
--- NOTE | 2018-12-08 22:22 | NUR ---
Nursing note: Assumed care of pt in her room. She is A&OX4, compliant, and pleasant. Pt has no c/o pain, no other needs at this time, no hallucinations at this time.
[2018-12-09 05:05] VITALS: BP 114/78
[2018-12-09] MEDS: LEVOTHYROXINE 50 MCG TABLET PO SCH (05:42)
[2018-12-09 07:14] LABS: BASO # 0.1 x10^3/uL (0.0-0.2); BASO % 1 % (0-3); EOS # 0.5 x10^3/uL (0.0-0.7); EOS % 7 % (0-3); HEMATOCRIT 34.8 % (36.0-47.0); HEMOGLOBIN 11.5 g/dL (12.0-15.5); LYMPH # 1.6 x10^3/uL (1.0-4.8); LYMPH % 22 % (24-48); MEAN CORPUSCULAR HEMOGLOBIN 30 pg (25-35); MEAN CORPUSCULAR HGB CONC 33 g/dL (31-37); MEAN CORPUSCULAR VOLUME 92 fL (79-100); MONO # 0.7 x10^3/uL (0.0-1.1); MONO % 9 % (0-9); NEUT # 4.5 x10^3uL (1.8-7.7); NEUT % 61 % (31-73); PLATELET COUNT 293 x10^3/uL (140-400); RED BLOOD COUNT 3.79 x10^6/uL (3.50-5.40); WHITE BLOOD COUNT 7.4 x10^3/uL (4.0-11.0)
[2018-12-09 07:34] LABS: ALBUMIN 3.3 g/dL (3.4-5.0); ALK PHOS 60 U/L (46-116); ALT (SGPT) 17 U/L (14-59); ANION GAP 9 (6-14); AST (SGOT) 13 U/L (15-37); BLOOD UREA NITROGEN 14 mg/dL (7-20); BUN/CREATININE RATIO 20 (6-20); CALCIUM 8.9 mg/dL (8.5-10.1); CARBON DIOXIDE 28 mmol/L (21-32); CHLORIDE 102 mmol/L (98-107); CREATININE 0.7 mg/dL (0.6-1.0); GFR 80.9; GLUCOSE 100 mg/dL (70-99); POTASSIUM 4.4 mmol/L (3.5-5.1); SODIUM 139 mmol/L (136-145); TOTAL BILIRUBIN 0.2 mg/dL (0.2-1.0); TOTAL PROTEIN 6.7 g/dL (6.4-8.2)
[2018-12-09 07:39] LABS: VAL ACID 49 mcg/mL (50-100)
[2018-12-09] MEDS: POLYETHYLENE GLYCOL 3350 17 GM PACKET. PO SCH (07:56)
[2018-12-09] MEDS: metFORMIN 500 MG TABLET PO SCH ×2 (07:56→17:00)
[2018-12-09] MEDS: ASPIRIN ENTERIC COATED 81 MG TABLET.DR. PO SCH (07:56)
[2018-12-09] MEDS: POLYVINYL ALCOHOL/POVIDONE/PF OPHTH SOLUTION DROPERETTE. OU SCH ×2 (07:56→19:42)
[2018-12-09] MEDS: OMEGA-3 FATTY ACIDS/FISH OIL 1,000 MG CAPSULE. PO SCH ×2 (07:56→19:44)
[2018-12-09] MEDS: COLESTIPOL HCL 1 GM TABLET PO SCH ×2 (07:57→19:43)
[2018-12-09] MEDS: PALIPERIDONE 1.5 MG PO SCH ×2 (07:59→09:00)
[2018-12-09] MEDS ORDERED: PALIPERIDONE 6 MG TAB.ER.24. PO ONE (09:00)
[2018-12-09] MEDS: LOPERAMIDE 2 MG CAPSULE PO PRN (15:26)
[2018-12-09 16:24] VITALS: BP 123/84
--- NOTE | 2018-12-09 19:02 | NUR ---
Pt up adl to meals. c/o diarrhea x1. Imodium given x1. Has been withdrawn to room . C/o with meds and cares.
--- NOTE | 2018-12-09 19:13 | PN ---
DATE: 12/07/2018 PSYCHIATRIC PROGRESS NOTE This late entry 12/07/2018 covers elements not covered in my initial note. SUBJECTIVE: I met with the patient evening of 12/07/2018. Per WANG Ramírez, the patient slept 8 hours previous night. She has been somewhat withdrawn, but no agitation, aggression noted previous night. No hallucinations, but she told the nursing staff actually RN that she feels there are controllers in her mind and some are helpful and some hinder her. She attended the a.m. groups, went out to the patio for the afternoon time outside. Rest of the time, somewhat withdrawn to her room. REVIEW OF SYSTEMS: Positive for the above hallucinations, which she alluded to me at length when I met with her individually. No CV, , pulmonary, eye, ENT system symptoms on review. MENTAL STATUS EXAM: Reasonably oriented. Speech is coherent, has some latency. Abstraction fair, computation impaired, language function intact, attention span short. Mood and affect somewhat withdrawn. LABORATORY DATA: Reviewed. IMPRESSION: Schizoaffective disorder, bipolar type, mixed with psychotic features; anxiety disorder, unspecified. PLAN: We had a lengthy discussion with nursing staff. We do not have Invega at the hospital, they will try and obtain it from elsewhere. We will start 3 mg a day, increase to 6 mg a day. Stop the Risperdal given her history of tardive dyskinesia for which she remains on valbenazine. Continue Aricept, melatonin along with trazodone and Zyprexa p.r.n. and initiate Depakote as a mood stabilizer to help minimize the dosages of antipsychotics needed for her. MAN Sukhi PIEDRA MD DR: WEI/chico JOB#: [id number] / [id number]
[2018-12-09] MEDS: LATANOPROST 0.005% OPHTH SOLUTION 2.5ML BOTTLE. OU SCH (19:42)
[2018-12-09] MEDS: DIVALPROEX ER 500 MG TAB.ER.24H PO SCH (19:43)
[2018-12-09] MEDS: MELATONIN 3 MG TABLET PO SCH (19:43)
[2018-12-09] MEDS: DONEPEZIL HCL 5 MG TABLET. PO SCH (19:44)
[2018-12-09] MEDS ORDERED: risperiDONE 1 MG TABLET. PO SCH (21:00)
--- NOTE | 2018-12-09 21:33 | NUR ---
Nursing note: Assumed care of pt in her room. She was lying down but easily awakened. She is A&OX4, compliant, and pleasant. Pt remains withdrawn to room, No c/o pain.
--- NOTE | 2018-12-09 21:42 | PDOC ---
Exam Note: Aldo Note: Please also refer to the separate dictated note~for this date of service dictated separately.~Patient seen individually. Discussed the patient with Nursing staff reviewed the chart.~Reviewed interim history and current functioning. Reviewed vital signs,~Labs/ Radiology~and current medications noted below. Continue current treatment with the changes noted in the dictated addendum note Assessment: Vital Signs/I&O: Vital Signs Date Time Temp Pulse Resp B/P (MAP) Pulse Ox O2 Delivery O2 Flow Rate FiO2 12/09/18 16:24 97.5 86 18 123/84 (97) 95 I & O 12/08/18 12/08/18 12/09/18 15:00 23:00 07:00 Intake Total 720 ml 480 ml 120 ml Balance 720 ml 480 ml 120 ml Labs: Laboratory Tests Test 12/09/18 06:31 White Blood Count 7.4 x10^3/uL (4.0-11.0) Red Blood Count 3.79 x10^6/uL (3.50-5.40) Hemoglobin 11.5 g/dL (12.0-15.5) L Hematocrit 34.8 % (36.0-47.0) L Mean Corpuscular Volume 92 fL (79-100) Mean Corpuscular Hemoglobin 30 pg (25-35) Mean Corpuscular Hemoglobin Concent 33 g/dL (31-37) Red Cell Distribution Width 13.0 % (11.5-14.5) Platelet Count 293 x10^3/uL (140-400) Neutrophils (%) (Auto) 61 % (31-73) Lymphocytes (%) (Auto) 22 % (24-48) L Monocytes (%) (Auto) 9 % (0-9) Eosinophils (%) (Auto) 7 % (0-3) H Basophils (%) (Auto) 1 % (0-3) Neutrophils # (Auto) 4.5 x10^3uL (1.8-7.7) Lymphocytes # (Auto) 1.6 x10^3/uL (1.0-4.8) Monocytes # (Auto) 0.7 x10^3/uL (0.0-1.1) Eosinophils # (Auto) 0.5 x10^3/uL (0.0-0.7) Basophils # (Auto) 0.1 x10^3/uL (0.0-0.2) Sodium Level 139 mmol/L (136-145) Potassium Level 4.4 mmol/L (3.5-5.1) Chloride Level 102 mmol/L (98-107) Carbon Dioxide Level 28 mmol/L (21-32) Anion Gap 9 (6-14) Blood Urea Nitrogen 14 mg/dL (7-20) Creatinine 0.7 mg/dL (0.6-1.0) Estimated GFR (Cockcroft-Gault) 80.9 BUN/Creatinine Ratio 20 (6-20) Glucose Level 100 mg/dL (70-99) H Calcium Level 8.9 mg/dL (8.5-10.1) Total Bilirubin 0.2 mg/dL (0.2-1.0) Aspartate Amino Transferase (AST) 13 U/L (15-37) L Alanine Aminotransferase (ALT) 17 U/L (14-59) Alkaline Phosphatase 60 U/L (46-116) Total Protein 6.7 g/dL (6.4-8.2) Albumin 3.3 g/dL (3.4-5.0) L Albumin/Globulin Ratio 1.0 (1.0-1.7) Valproic Acid Level 49 mcg/mL (50-100) L Valproic Acid Last Dose Date 12/08/18 Valproic Acid Last Dose Time 2100 Current Medications: Meds: Current Medications Medications (Trade) Dose Ordered Sig/Nicolle Route PRN Reason Start Time Stop Time Status Last Admin Dose Admin Loperamide HCl (Imodium) 2 mg PRN Q15MIN PRN PO DIARRHEA 12/09/18 15:00 12/09/18 15:26 I have reviewed the current psychotropics carefully including drug interactions. Risk benefit ratio favors no change other than as noted in my dictated progress note. Diagnosis: Problems: (1) Anxiety disorder (2) Schizoaffective disorder, chronic condition with acute exacerbation (3) Schizophrenia, paranoid, chronic with acute exacerbation (4) Impulse control disorder KJ PIEDRA MD Dec 09, 2018 21:42
--- NOTE | 2018-12-09 22:36 | PN ---
DATE: 12/08/2018 PSYCHIATRIC PROGRESS NOTE This late entry 12/08/2018 covers the elements not covered in my initial note. SUBJECTIVE: I met with the patient in the evening of 12/08/2018 and staffed at a treatment team meeting with the entire team in the morning. The patient slept 7-1/4 hours. Appetite is 75-100%. Compliant with medications and showers. I have had multiple discussions with nursing staff to try and obtain the Invega rather than using Risperdal given her tardive dyskinesia for which she is on valbenazine. I met with her in her room. REVIEW OF SYSTEMS: No CV, , pulmonary, eye system symptoms on review. MENTAL STATUS EXAM: Oriented to herself and situation. Speech is coherent, abstraction fair, computation impaired, language function intact. Mood and affect somewhat withdrawn. LABORATORY DATA: Reviewed. IMPRESSION: Bipolar disorder, mixed with psychotic features, mild cognitive impairment, schizoaffective disorder, bipolar type, mixed with psychotic features. PLAN: Continue current psychotropics. Depakote has been initiated. Adjust to reach therapeutic level. Continue Invega increased to 6 mg a day for now. MAN Sukhi PIEDRA MD DR: WEI/chico JOB#: [id number] / [id number]
[2018-12-10 05:11] VITALS: BP 93/64
[2018-12-10] MEDS: LEVOTHYROXINE 50 MCG TABLET PO SCH (05:32)
[2018-12-10] MEDS: COLESTIPOL HCL 1 GM TABLET PO SCH ×2 (08:17→20:31)
[2018-12-10] MEDS: metFORMIN 500 MG TABLET PO SCH ×2 (08:17→17:00)
[2018-12-10] MEDS: ASPIRIN ENTERIC COATED 81 MG TABLET.DR. PO SCH (08:17)
[2018-12-10] MEDS: PALIPERIDONE 6 MG TAB.ER.24. PO SCH (08:17)
[2018-12-10] MEDS: POLYVINYL ALCOHOL/POVIDONE/PF OPHTH SOLUTION DROPERETTE. OU SCH ×2 (08:17→20:31)
[2018-12-10] MEDS: OMEGA-3 FATTY ACIDS/FISH OIL 1,000 MG CAPSULE. PO SCH ×2 (08:17→20:31)
[2018-12-10] MEDS: POLYETHYLENE GLYCOL 3350 17 GM PACKET. PO SCH (08:17)
[2018-12-10 15:28] VITALS: BP 116/54
[2018-12-10] MEDS: MELATONIN 3 MG TABLET PO SCH (20:31)
[2018-12-10] MEDS: DONEPEZIL HCL 5 MG TABLET. PO SCH (20:31)
[2018-12-10] MEDS: DIVALPROEX ER 500 MG TAB.ER.24H PO SCH (20:31)
[2018-12-10] MEDS: LATANOPROST 0.005% OPHTH SOLUTION 2.5ML BOTTLE. OU SCH (20:32)
--- NOTE | 2018-12-10 22:15 | PDOC ---
Exam Note: Aldo Note: Please also refer to the separate dictated note~for this date of service dictated separately.~Patient seen individually. Discussed the patient with Nursing staff reviewed the chart.~Reviewed interim history and current functioning. Reviewed vital signs,~Labs/ Radiology~and current medications noted below. Continue current treatment with the changes noted in the dictated addendum note Assessment: Vital Signs/I&O: Vital Signs Date Time Temp Pulse Resp B/P (MAP) Pulse Ox O2 Delivery O2 Flow Rate FiO2 12/10/18 15:28 97.4 65 16 116/54 (74) 96 I & O 12/09/18 12/09/18 12/10/18 15:00 23:00 07:00 Intake Total 960 ml 480 ml 240 ml Balance 960 ml 480 ml 240 ml Current Medications: Meds: Current Medications Medications (Trade) Dose Ordered Sig/Nicolle Route PRN Reason Start Time Stop Time Status Last Admin Dose Admin Paliperidone (Invega) 6 mg DAILY PO 12/10/18 09:00 02/06/19 09:01 12/10/18 08:17 I have reviewed the current psychotropics carefully including drug interactions. Risk benefit ratio favors no change other than as noted in my dictated progress note. Diagnosis: Problems: (1) Anxiety disorder (2) Schizoaffective disorder, chronic condition with acute exacerbation (3) Schizophrenia, paranoid, chronic with acute exacerbation (4) Impulse control disorder KJ PIEDRA MD Dec 10, 2018 22:15
--- NOTE | 2018-12-10 23:45 | NUR ---
Pt located in her room this evening. Compliant with whole medications and shower. Pleasant and calm.
--- NOTE | 2018-12-11 02:16 | NUR ---
Pt witnessed repeatedly banging herself on the head while she was laying in bed. When asked what she was doing, pt stated that "these controllers in my head are driving me crazy." Pt stated that "the doctors call it mental illness. They think I'm crazy." Will continue to monitor.
[2018-12-11 05:39] VITALS: BP 109/72
[2018-12-11] MEDS: LEVOTHYROXINE 50 MCG TABLET PO SCH (05:53)
[2018-12-11] MEDS ORDERED: traZODone 50 MG TABLET. PO PRN (07:30)
[2018-12-11] MEDS: metFORMIN 500 MG TABLET PO SCH ×2 (08:04→17:00)
[2018-12-11] MEDS: OMEGA-3 FATTY ACIDS/FISH OIL 1,000 MG CAPSULE. PO SCH ×2 (08:04→20:25)
[2018-12-11] MEDS: POLYVINYL ALCOHOL/POVIDONE/PF OPHTH SOLUTION DROPERETTE. OU SCH ×2 (08:04→20:25)
[2018-12-11] MEDS: POLYETHYLENE GLYCOL 3350 17 GM PACKET. PO SCH (08:04)
[2018-12-11] MEDS: PALIPERIDONE 6 MG TAB.ER.24. PO SCH (08:04)
[2018-12-11] MEDS: ASPIRIN ENTERIC COATED 81 MG TABLET.DR. PO SCH (08:04)
[2018-12-11] MEDS: COLESTIPOL HCL 1 GM TABLET PO SCH ×2 (08:04→20:27)
[2018-12-11 15:59] VITALS: BP 127/79
--- NOTE | 2018-12-11 17:13 | NUR ---
Pt up adl to meals and is usually withdrawn to room rest of time. Has been compliant with meds and cares.
[2018-12-11] MEDS: LOPERAMIDE 2 MG CAPSULE PO PRN (17:49)
[2018-12-11] MEDS: LATANOPROST 0.005% OPHTH SOLUTION 2.5ML BOTTLE. OU SCH (20:25)
[2018-12-11] MEDS: DONEPEZIL HCL 5 MG TABLET. PO SCH (20:25)
[2018-12-11] MEDS: MELATONIN 3 MG TABLET PO SCH (20:25)
[2018-12-11] MEDS: DIVALPROEX ER 250 MG TAB.ER.24H. PO SCH (20:27)
[2018-12-11] MEDS: MIRTAZAPINE 7.5 MG TABLET. PO SCH (20:28)
--- NOTE | 2018-12-11 21:29 | PDOC ---
Exam Note: Aldo Note: Please also refer to the separate dictated note~for this date of service dictated separately.~Patient seen individually. Discussed the patient with Nursing staff reviewed the chart.~Reviewed interim history and current functioning. Reviewed vital signs,~Labs/ Radiology~and current medications noted below. Continue current treatment with the changes noted in the dictated addendum note Assessment: Vital Signs/I&O: Vital Signs Date Time Temp Pulse Resp B/P (MAP) Pulse Ox O2 Delivery O2 Flow Rate FiO2 12/11/18 15:59 97.9 87 20 127/79 (95) 93 I & O 12/10/18 12/10/18 12/11/18 15:00 23:00 07:00 Intake Total 720 ml 360 ml 240 ml Balance 720 ml 360 ml 240 ml Current Medications: Meds: Current Medications Medications (Trade) Dose Ordered Sig/Nicolle Route PRN Reason Start Time Stop Time Status Last Admin Dose Admin Divalproex Sodium (Depakote Er) 750 mg QHS PO 12/11/18 21:00 12/11/18 20:27 Trazodone HCl (Desyrel) 50 mg PRN QHS PRN PO INSOMNIA, MAY REPEAT X1 12/11/18 07:30 12/11/18 20:25 Mirtazapine (Remeron) 7.5 mg QHS PO 12/11/18 21:00 12/11/18 20:28 I have reviewed the current psychotropics carefully including drug interactions. Risk benefit ratio favors no change other than as noted in my dictated progress note. Diagnosis: Problems: (1) Anxiety disorder (2) Schizoaffective disorder, chronic condition with acute exacerbation (3) Schizophrenia, paranoid, chronic with acute exacerbation (4) Impulse control disorder KJ PIEDRA MD Dec 11, 2018 21:29
--- NOTE | 2018-12-11 23:07 | NUR ---
Pt withdrawn to her room all evening. Compliant with whole medications. States that she continues to hear the voices in her head.
[2018-12-12 05:19] VITALS: BP 108/63
[2018-12-12] MEDS: LEVOTHYROXINE 50 MCG TABLET PO SCH (06:13)
[2018-12-12] MEDS: ASPIRIN ENTERIC COATED 81 MG TABLET.DR. PO SCH (08:01)
[2018-12-12] MEDS: POLYETHYLENE GLYCOL 3350 17 GM PACKET. PO SCH (08:01)
[2018-12-12] MEDS: POLYVINYL ALCOHOL/POVIDONE/PF OPHTH SOLUTION DROPERETTE. OU SCH ×2 (08:01→19:49)
[2018-12-12] MEDS: metFORMIN 500 MG TABLET PO SCH ×2 (08:01→16:34)
[2018-12-12] MEDS: OMEGA-3 FATTY ACIDS/FISH OIL 1,000 MG CAPSULE. PO SCH ×2 (08:01→19:50)
[2018-12-12] MEDS: PALIPERIDONE 6 MG TAB.ER.24. PO SCH (08:05)
[2018-12-12] MEDS: COLESTIPOL HCL 1 GM TABLET PO SCH ×2 (08:07→19:50)
--- NOTE | 2018-12-12 09:00 | PN ---
DATE: 12/10/2018 PSYCHIATRIC PROGRESS NOTE This late entry 12/10/2018 covers elements not covered in my initial note. SUBJECTIVE: I met with the patient in her room. The patient slept 9 hours previous night. Valproic acid level is 49 on the , on Depakote ER 500 mg at bedtime. We will increase to 750 mg at bedtime. Check CBC, CMP, valproic acid level in 3 days to reach therapeutic level. REVIEW OF SYSTEMS: Positive for some tiredness. She was lying in bed, withdrawn, does admit to intermittent hallucinations, believes there are controllers in a head convinced of this. I could not talk her out of it. No CV, , pulmonary, eye system symptoms on review. MENTAL STATUS EXAM: Reasonably oriented. Speech is coherent, abstraction fair, computation impaired, language function intact, attention span short. Mood and affect withdrawn LABORATORY DATA: Labs reviewed as noted. IMPRESSION: Unchanged from initial note. PLAN: No change from initial note other than what is noted above. KJ PIEDRA MD DR: WEI/chico JOB#: [id number] / [id number]
--- NOTE | 2018-12-12 13:20 | PN ---
DATE: 12/09/2018 PSYCHIATRIC PROGRESS NOTE This late entry 12/09/2018 covers elements not covered in my initial note. SUBJECTIVE: I met with the patient evening of 12/09/2018 in her room. The patient slept 8-3/4 hours previous night. Per WANG Patton, the patient remains somewhat withdrawn, still has some delusions, hallucinations, but when I questioned her directly, she states they are much less. She is on Invega 6 mg a day. REVIEW OF SYSTEMS: No CV, , pulmonary, eye system symptoms on review. MENTAL STATUS EXAM: Oriented reasonably. Speech has some latency, coherent. Abstraction fair, computation impaired, language function intact, attention span short. Mood and affect somewhat withdrawn. No suicidal or homicidal ideation. LABORATORY DATA: Reviewed. IMPRESSION: Unchanged from initial note. PLAN: No change from initial note. MAN Sukhi PIEDRA MD DR: WEI/chico JOB#: [id number] / [id number]
[2018-12-12 15:59] VITALS: BP 97/58
--- NOTE | 2018-12-12 19:48 | NUR ---
Patient has been calm, compliant, and coherent. Patient stated that she still hears voices but they are much better than before. Hallucinations are not causing acute distress or behavioral disturbances. She was withdrawn to her room most of the day. Will continue to monitor.
[2018-12-12] MEDS: MELATONIN 3 MG TABLET PO SCH (19:50)
[2018-12-12] MEDS: DONEPEZIL HCL 5 MG TABLET. PO SCH (19:50)
[2018-12-12] MEDS: MIRTAZAPINE 7.5 MG TABLET. PO SCH (19:50)
[2018-12-12] MEDS: DIVALPROEX ER 250 MG TAB.ER.24H. PO SCH (19:50)
[2018-12-12] MEDS: LATANOPROST 0.005% OPHTH SOLUTION 2.5ML BOTTLE. OU SCH (19:51)
--- NOTE | 2018-12-12 21:39 | PDOC ---
Exam Note: Aldo Note: Please also refer to the separate dictated note~for this date of service dictated separately.~Patient seen individually. Discussed the patient with Nursing staff reviewed the chart.~Reviewed interim history and current functioning. Reviewed vital signs,~Labs/ Radiology~and current medications noted below. Continue current treatment with the changes noted in the dictated addendum note Assessment: Vital Signs/I&O: Vital Signs Date Time Temp Pulse Resp B/P (MAP) Pulse Ox O2 Delivery O2 Flow Rate FiO2 12/12/18 15:59 98.3 80 18 97/58 (71) 98 I & O 12/11/18 12/11/18 12/12/18 15:00 23:00 07:00 Intake Total 960 ml 220 ml Balance 960 ml 220 ml Current Medications: I have reviewed the current psychotropics carefully including drug interactions. Risk benefit ratio favors no change other than as noted in my dictated progress note. Diagnosis: Problems: (1) Anxiety disorder (2) Schizoaffective disorder, chronic condition with acute exacerbation (3) Schizophrenia, paranoid, chronic with acute exacerbation (4) Impulse control disorder KJ PIEDRA MD Dec 12, 2018 21:39
--- NOTE | 2018-12-12 23:00 | NUR ---
Nursing note: Assumed care of pt in her room where she is withdrawn. She is compliant and pleasant. When asked about voices or hallucinations, she stated it has improved. Pt is A&OX4, no c/o pain.
--- NOTE | 2018-12-12 23:43 | PN ---
DATE: 12/11/2018 PSYCHIATRIC PROGRESS NOTE This late entry, 12/11, covers the elements not covered in my initial note. SUBJECTIVE: I met with the patient on the evening of 12/11. The patient slept 6-3/4 hours previous night. At night, she was pounding her head repeatedly loudly and when questioned, she said she is trying to get rid of the controllers in her head. We will add Zyprexa p.r.n. and trazodone to help with the insomnia. REVIEW OF SYSTEMS: No CV, , pulmonary, eye, ENT systems symptoms on review. Reliability varies. MENTAL STATUS EXAM: Oriented to herself and situation. Speech has some latency, coherent, often response is monosyllabic. Abstraction fair, computation impaired, language function intact. Mood and affect somewhat withdrawn. I had a lengthy discussion with her and explaining diagnosis. Adjustments in her psychotropics we are making. She states she responded well to Remeron in the past for insomnia and anxiety. We will add 7.5 mg at bedtime and start Zyprexa p.r.n., trazodone at bedtime p.r.n. IMPRESSION: Unchanged from initial note. PLAN: No change from initial note other than what is noted above. KJ PIEDRA MD DR: WEI/chico JOB#: [id number] / [id number]
[2018-12-13] MEDS: LEVOTHYROXINE 50 MCG TABLET PO SCH (05:40)
[2018-12-13 05:48] VITALS: BP 124/80
[2018-12-13] MEDS: POLYETHYLENE GLYCOL 3350 17 GM PACKET. PO SCH (08:18)
[2018-12-13] MEDS: POLYVINYL ALCOHOL/POVIDONE/PF OPHTH SOLUTION DROPERETTE. OU SCH ×2 (08:18→20:59)
[2018-12-13] MEDS: ASPIRIN ENTERIC COATED 81 MG TABLET.DR. PO SCH (08:18)
[2018-12-13] MEDS: metFORMIN 500 MG TABLET PO SCH ×2 (08:18→17:21)
[2018-12-13] MEDS: OMEGA-3 FATTY ACIDS/FISH OIL 1,000 MG CAPSULE. PO SCH ×2 (08:19→20:59)
[2018-12-13] MEDS: COLESTIPOL HCL 1 GM TABLET PO SCH ×2 (08:21→20:59)
[2018-12-13] MEDS: PALIPERIDONE 6 MG TAB.ER.24. PO SCH (08:22)
[2018-12-13 16:28] VITALS: BP 138/83
[2018-12-13] MEDS: LATANOPROST 0.005% OPHTH SOLUTION 2.5ML BOTTLE. OU SCH (20:58)
[2018-12-13] MEDS: DONEPEZIL HCL 5 MG TABLET. PO SCH (20:59)
[2018-12-13] MEDS: MIRTAZAPINE 7.5 MG TABLET. PO SCH (20:59)
[2018-12-13] MEDS: DIVALPROEX ER 250 MG TAB.ER.24H. PO SCH (20:59)
[2018-12-13] MEDS: MELATONIN 3 MG TABLET PO SCH (21:03)
--- NOTE | 2018-12-13 22:11 | PDOC ---
Exam Note: Aldo Note: Please also refer to the separate dictated note~for this date of service dictated separately.~Patient seen individually. Discussed the patient with Nursing staff reviewed the chart.~Reviewed interim history and current functioning. Reviewed vital signs,~Labs/ Radiology~and current medications noted below. Continue current treatment with the changes noted in the dictated addendum note Assessment: Vital Signs/I&O: Vital Signs Date Time Temp Pulse Resp B/P (MAP) Pulse Ox O2 Delivery O2 Flow Rate FiO2 12/13/18 16:28 98.0 82 16 138/83 (101) 98 I & O 12/12/18 12/12/18 12/13/18 15:00 23:00 07:00 Intake Total 720 ml 240 ml 80 ml Balance 720 ml 240 ml 80 ml Current Medications: I have reviewed the current psychotropics carefully including drug interactions. Risk benefit ratio favors no change other than as noted in my dictated progress note. Diagnosis: Problems: (1) Anxiety disorder (2) Schizoaffective disorder, chronic condition with acute exacerbation (3) Schizophrenia, paranoid, chronic with acute exacerbation (4) Impulse control disorder KJ PIEDRA MD Dec 13, 2018 22:11
--- NOTE | 2018-12-13 23:50 | NUR ---
Pt is withdrawn to her room upon assessment. She is pleasant, social with her roommate. Pt compliant with medications and assessment. Pt is A&OX4, no c/o pain.
--- NOTE | 2018-12-14 03:18 | PN ---
DATE: 12/12/2018 PSYCHIATRIC PROGRESS NOTE This late entry 12/12/2018 covers elements not covered in my initial note. SUBJECTIVE: I met with the patient in the evening. The patient slept 9 hours previous night. Per WANG Ramírez, the patient still has some hallucinations, but she has not been smacking herself on the head to get rid of the control as like she was doing a couple of days previously and she confirmed this with me as I met with her individually in her room in the evening. REVIEW OF SYSTEMS: Positive for some tiredness. No CV, , pulmonary, eye system symptoms on review. MENTAL STATUS EXAM: Oriented reasonably. Speech has some latency, coherent. Abstraction fair, computation impaired, language function intact, attention span short. Mood and affect somewhat withdrawn. LABORATORY DATA: Reviewed. IMPRESSION: Unchanged from initial note. PLAN: No change from initial note and we are adjusting the Depakote. Repeat labs on 12/14/2018 to reach therapeutic level. Maintain Invega 6 mg a day. Rest unchanged from initial note. MAN Sukhi PIEDRA MD DR: WEI/chico JOB#: [id number] / [id number]
[2018-12-14 05:50] VITALS: BP 100/66
[2018-12-14] MEDS: LEVOTHYROXINE 50 MCG TABLET PO SCH (05:59)
[2018-12-14 06:51] LABS: BASO # 0.1 x10^3/uL (0.0-0.2); BASO % 1 % (0-3); EOS # 0.4 x10^3/uL (0.0-0.7); EOS % 5 % (0-3); HEMATOCRIT 32.7 % (36.0-47.0); HEMOGLOBIN 10.9 g/dL (12.0-15.5); LYMPH # 1.6 x10^3/uL (1.0-4.8); LYMPH % 18 % (24-48); MEAN CORPUSCULAR HEMOGLOBIN 31 pg (25-35); MEAN CORPUSCULAR HGB CONC 33 g/dL (31-37); MEAN CORPUSCULAR VOLUME 92 fL (79-100); MONO # 0.8 x10^3/uL (0.0-1.1); MONO % 10 % (0-9); NEUT # 5.8 x10^3uL (1.8-7.7); NEUT % 67 % (31-73); PLATELET COUNT 266 x10^3/uL (140-400); RED BLOOD COUNT 3.58 x10^6/uL (3.50-5.40); RED CELL DISTRIBUTION WIDTH 13.1 % (11.5-14.5); WHITE BLOOD COUNT 8.7 x10^3/uL (4.0-11.0)
[2018-12-14 07:06] LABS: ALBUMIN/GLOBULIN RATIO 0.9 (1.0-1.7); ALK PHOS 59 U/L (46-116); ALT (SGPT) 19 U/L (14-59); ANION GAP 8 (6-14); AST (SGOT) 14 U/L (15-37); BLOOD UREA NITROGEN 13 mg/dL (7-20); BUN/CREATININE RATIO 19 (6-20); CALCIUM 8.6 mg/dL (8.5-10.1); CARBON DIOXIDE 30 mmol/L (21-32); CHLORIDE 101 mmol/L (98-107); CREATININE 0.7 mg/dL (0.6-1.0); GFR 80.9; GLUCOSE 85 mg/dL (70-99); POTASSIUM 4.1 mmol/L (3.5-5.1); SODIUM 139 mmol/L (136-145); TOTAL BILIRUBIN 0.3 mg/dL (0.2-1.0); TOTAL PROTEIN 6.3 g/dL (6.4-8.2); VAL ACID 77 mcg/mL (50-100)
[2018-12-14] MEDS: POLYETHYLENE GLYCOL 3350 17 GM PACKET. PO SCH (07:51)
[2018-12-14] MEDS: metFORMIN 500 MG TABLET PO SCH ×2 (07:51→17:04)
[2018-12-14] MEDS: POLYVINYL ALCOHOL/POVIDONE/PF OPHTH SOLUTION DROPERETTE. OU SCH ×2 (07:51→19:55)
[2018-12-14] MEDS: OMEGA-3 FATTY ACIDS/FISH OIL 1,000 MG CAPSULE. PO SCH ×2 (07:51→19:57)
[2018-12-14] MEDS: ASPIRIN ENTERIC COATED 81 MG TABLET.DR. PO SCH (07:51)
[2018-12-14] MEDS: PALIPERIDONE 6 MG TAB.ER.24. PO SCH (07:54)
[2018-12-14] MEDS: COLESTIPOL HCL 1 GM TABLET PO SCH ×2 (07:54→19:56)
--- NOTE | 2018-12-14 10:20 | NUR ---
Patient is calm, pleasant, and compliant with whole medications. No reports of pain. When asked about the voices and hallucinations, patient stated it has improved.
--- NOTE | 2018-12-14 11:25 | NUR ---
LYDIA received a call from pt. daughter, Dian, wanting to discuss discharge. SW did have permission to speak with pt. daughter. Dian shared she had just spoken to her mother and her mother's nurse, as pt. sounded out of it. LYDIA will touch base with Dian tomorrow, after treatment team, to discuss discharge.
[2018-12-14 16:03] VITALS: BP 105/59
[2018-12-14] MEDS: LATANOPROST 0.005% OPHTH SOLUTION 2.5ML BOTTLE. OU SCH (19:55)
[2018-12-14] MEDS: MELATONIN 3 MG TABLET PO SCH (19:56)
[2018-12-14] MEDS: DONEPEZIL HCL 5 MG TABLET. PO SCH (19:56)
[2018-12-14] MEDS: DIVALPROEX ER 250 MG TAB.ER.24H. PO SCH (19:56)
[2018-12-14] MEDS: MIRTAZAPINE 7.5 MG TABLET. PO SCH (19:57)
--- NOTE | 2018-12-14 21:26 | PDOC ---
Exam Note: Aldo Note: Please also refer to the separate dictated note~for this date of service dictated separately.~Patient seen individually. Discussed the patient with Nursing staff reviewed the chart.~Reviewed interim history and current functioning. Reviewed vital signs,~Labs/ Radiology~and current medications noted below. Continue current treatment with the changes noted in the dictated addendum note Assessment: Vital Signs/I&O: Vital Signs Date Time Temp Pulse Resp B/P (MAP) Pulse Ox O2 Delivery O2 Flow Rate FiO2 12/14/18 16:03 98.3 77 16 105/59 (74) 96 I & O 12/13/18 12/13/18 12/14/18 14:59 22:59 06:59 Intake Total 720 ml 240 ml 120 ml Balance 720 ml 240 ml 120 ml Labs: Laboratory Tests Test 12/14/18 06:20 White Blood Count 8.7 x10^3/uL (4.0-11.0) Red Blood Count 3.58 x10^6/uL (3.50-5.40) Hemoglobin 10.9 g/dL (12.0-15.5) L Hematocrit 32.7 % (36.0-47.0) L Mean Corpuscular Volume 92 fL (79-100) Mean Corpuscular Hemoglobin 31 pg (25-35) Mean Corpuscular Hemoglobin Concent 33 g/dL (31-37) Red Cell Distribution Width 13.1 % (11.5-14.5) Platelet Count 266 x10^3/uL (140-400) Neutrophils (%) (Auto) 67 % (31-73) Lymphocytes (%) (Auto) 18 % (24-48) L Monocytes (%) (Auto) 10 % (0-9) H Eosinophils (%) (Auto) 5 % (0-3) H Basophils (%) (Auto) 1 % (0-3) Neutrophils # (Auto) 5.8 x10^3uL (1.8-7.7) Lymphocytes # (Auto) 1.6 x10^3/uL (1.0-4.8) Monocytes # (Auto) 0.8 x10^3/uL (0.0-1.1) Eosinophils # (Auto) 0.4 x10^3/uL (0.0-0.7) Basophils # (Auto) 0.1 x10^3/uL (0.0-0.2) Sodium Level 139 mmol/L (136-145) Potassium Level 4.1 mmol/L (3.5-5.1) Chloride Level 101 mmol/L (98-107) Carbon Dioxide Level 30 mmol/L (21-32) Anion Gap 8 (6-14) Blood Urea Nitrogen 13 mg/dL (7-20) Creatinine 0.7 mg/dL (0.6-1.0) Estimated GFR (Cockcroft-Gault) 80.9 BUN/Creatinine Ratio 19 (6-20) Glucose Level 85 mg/dL (70-99) Calcium Level 8.6 mg/dL (8.5-10.1) Total Bilirubin 0.3 mg/dL (0.2-1.0) Aspartate Amino Transferase (AST) 14 U/L (15-37) L Alanine Aminotransferase (ALT) 19 U/L (14-59) Alkaline Phosphatase 59 U/L (46-116) Total Protein 6.3 g/dL (6.4-8.2) L Albumin 3.0 g/dL (3.4-5.0) L Albumin/Globulin Ratio 0.9 (1.0-1.7) L Valproic Acid Level 77 mcg/mL (50-100) Valproic Acid Last Dose Date 12/13/2018 Valproic Acid Last Dose Time 2100 Current Medications: I have reviewed the current psychotropics carefully including drug interactions. Risk benefit ratio favors no change other than as noted in my dictated progress note. Diagnosis: Problems: (1) Anxiety disorder (2) Schizoaffective disorder, chronic condition with acute exacerbation (3) Schizophrenia, paranoid, chronic with acute exacerbation (4) Impulse control disorder KJ PIEDRA MD Dec 14, 2018 21:26
--- NOTE | 2018-12-14 22:14 | NUR ---
Nursing note: Assumed care of pt in her room. she was sleeping but easily awakened. Pt is appropriate and compliant, A&OX4, denies hallucinations at this time. No c/o pain, no further needs.
--- NOTE | 2018-12-15 03:22 | PN ---
DATE: 12/13/2018 PSYCHIATRIC PROGRESS NOTE This late entry 12/13/2018 covers elements not covered in my initial note. SUBJECTIVE: I met with the patient evening of 12/13/2018. Conrad Ferraro RN, the patient slept 8-3/4 hours previous night, but remains withdrawn in her room. She voices hallucinations and the voices inside her head are better. She was somewhat groggy in the morning. I met with her in her room. REVIEW OF SYSTEMS: No CV, , pulmonary, eye, ENT system symptoms on review. MENTAL STATUS EXAM: Reasonably oriented. Speech coherent, abstraction fair, computation somewhat impaired, language function intact, attention span short. Mood and affect are somewhat withdrawn. LABORATORY DATA: Reviewed. IMPRESSION: Unchanged from initial note. PLAN: No change from initial note. MAN Sukhi PIEDRA MD DR: WEI/chico JOB#: [id number] / [id number]
[2018-12-15 05:38] VITALS: BP 120/78
[2018-12-15] MEDS: LEVOTHYROXINE 50 MCG TABLET PO SCH (06:00)
[2018-12-15] MEDS: ASPIRIN ENTERIC COATED 81 MG TABLET.DR. PO SCH (07:22)
[2018-12-15] MEDS: POLYVINYL ALCOHOL/POVIDONE/PF OPHTH SOLUTION DROPERETTE. OU SCH ×2 (07:22→20:43)
[2018-12-15] MEDS: POLYETHYLENE GLYCOL 3350 17 GM PACKET. PO SCH (07:22)
[2018-12-15] MEDS: OMEGA-3 FATTY ACIDS/FISH OIL 1,000 MG CAPSULE. PO SCH ×2 (07:22→20:40)
[2018-12-15] MEDS: metFORMIN 500 MG TABLET PO SCH ×2 (07:22→17:07)
[2018-12-15] MEDS: COLESTIPOL HCL 1 GM TABLET PO SCH ×2 (07:23→20:42)
[2018-12-15] MEDS: PALIPERIDONE 6 MG TAB.ER.24. PO SCH (07:24)
--- NOTE | 2018-12-15 09:25 | NUR ---
WEEKLY ACTIVITY THERAPY NOTE Date of Admission: 12/02/2018 Date of AT Assessment:12/05/2018 Goal aimed: to increase relaxation techniques Initial Goal: Pt. will participate in at least five Activity Therapy group or individual sessions, focused on relaxation, before discharge. Weekly progress towards goal: 06/17 (12/03- Dottie Show, 12/07- Patio time, 12/10-40 ways to relax and movie matinee) Group participation level: minimal in both groups plus one other, non-relaxation focused session Weekly highlights: discussed relaxation techniques with HUMAN RESOURCES EXECUTIVE on Wednesday morning Behaviors observed: sits quietly when around group, keeps to self and needs direct prompting, not around for a full group Plan: no change to goal Beneficial adaptations: direct prompting, provide schedule of activities, invite to group
--- NOTE | 2018-12-15 10:00 | NUR ---
Nursing note: Pt was in the dining room for med administration and assessment. Pt was calm and compliant with her assessment and taking her meds whole. She declined hearing any voices. Pt withdrew to her bedroom once she was finished with her breakfast.
--- NOTE | 2018-12-15 11:22 | NUR ---
LYDIA left message for Iris, Boat Tender at [facility], to give her an update and to set up discharge scheduled for 12/19/2018. LYDIA left message for pt. daughter, Dian, letting her know when pt. would be discharging. Pt. gave LYDIA permission to let her daughter know. Addendum: 12/15/18 at 1416 by NATALIA FREEMAN LYDIA spoke to Iris and gave her an update on pt. LYDIA also spoke to Osvaldo in admissions to set up discharge. LYDIA will fax updated pt. notes to Osvaldo tomorrow and call for a burr picker time.
--- NOTE | 2018-12-15 11:24 | NUR ---
WEEKLY NOTE Pt. was present during treatment team. Pt. has been eating 75% to 100% of meals and sleeps an average of 6 to 7 hours. Pt. has been medication complaint and cooperative with cares. Pt. is pleasant but is often withdrawn to her room. Pt. shared she is no longer hearing voices and is ready to discharge. Pt. is scheduled to discharge on 12/19/2018 back to [facility].
[2018-12-15 16:49] VITALS: BP 122/70
[2018-12-15] MEDS: DIVALPROEX ER 250 MG TAB.ER.24H. PO SCH (20:40)
[2018-12-15] MEDS: DONEPEZIL HCL 5 MG TABLET. PO SCH (20:40)
[2018-12-15] MEDS: MIRTAZAPINE 7.5 MG TABLET. PO SCH (20:40)
[2018-12-15] MEDS: MELATONIN 3 MG TABLET PO SCH (20:41)
[2018-12-15] MEDS: LATANOPROST 0.005% OPHTH SOLUTION 2.5ML BOTTLE. OU SCH (21:36)
--- NOTE | 2018-12-15 21:45 | PDOC ---
Exam Note: Aldo Note: Please also refer to the separate dictated note~for this date of service dictated separately.~Patient seen individually. Discussed the patient with Nursing staff reviewed the chart.~Reviewed interim history and current functioning. Reviewed vital signs,~Labs/ Radiology~and current medications noted below. Continue current treatment with the changes noted in the dictated addendum note Assessment: Vital Signs/I&O: Vital Signs Date Time Temp Pulse Resp B/P (MAP) Pulse Ox O2 Delivery O2 Flow Rate FiO2 12/15/18 16:49 98.2 72 18 122/70 (87) 94.0 12/15/18 05:38 95 I & O 12/14/18 12/14/18 12/15/18 15:00 23:00 07:00 Intake Total 720 ml 240 ml Balance 720 ml 240 ml Current Medications: I have reviewed the current psychotropics carefully including drug interactions. Risk benefit ratio favors no change other than as noted in my dictated progress note. Diagnosis: Problems: (1) Anxiety disorder (2) Schizoaffective disorder, chronic condition with acute exacerbation (3) Schizophrenia, paranoid, chronic with acute exacerbation (4) Impulse control disorder KJ PIEDRA MD Dec 15, 2018 21:45
--- NOTE | 2018-12-15 21:47 | NUR ---
Nursing Note: Assumed care of pt. this evening. she was lying in her bed. She has been calm, cooperative, and withdrawn to her room and self. She has been compliant with taking her HS meds whole. No agitation or aggression noted at this time.
[2018-12-16 06:00] VITALS: BP 107/94
[2018-12-16] MEDS: LEVOTHYROXINE 50 MCG TABLET PO SCH (06:15)
[2018-12-16] MEDS: OMEGA-3 FATTY ACIDS/FISH OIL 1,000 MG CAPSULE. PO SCH ×2 (08:51→20:31)
[2018-12-16] MEDS: POLYVINYL ALCOHOL/POVIDONE/PF OPHTH SOLUTION DROPERETTE. OU SCH ×2 (08:51→21:00)
[2018-12-16] MEDS: PALIPERIDONE 6 MG TAB.ER.24. PO SCH (08:51)
[2018-12-16] MEDS: metFORMIN 500 MG TABLET PO SCH ×2 (08:51→16:20)
[2018-12-16] MEDS: COLESTIPOL HCL 1 GM TABLET PO SCH ×2 (08:51→20:34)
[2018-12-16] MEDS: ASPIRIN ENTERIC COATED 81 MG TABLET.DR. PO SCH (08:51)
[2018-12-16] MEDS: POLYETHYLENE GLYCOL 3350 17 GM PACKET. PO SCH (08:51)
--- NOTE | 2018-12-16 10:18 | NUR ---
[facility] Social Work Discharge Planning Form Patient Name CARLOS ENRIQUE SANTOS Admit Date: 12/01/2018 DISCHARGE PLAN Discharge Destination: [facility] Care Assessment: NA Level II Assessment: NA Transportation: [facility] to transport pt. on 12/19/2018 time TBD. Special Instructions/Notes: Please fax discharge paperwork and medication list to [phone]. DISCHARGE TO FACILITY Facility: [facility] Address: [address] [place] [address] Contact Name: Divine Riley Contact Name: LYDIA Simmons PCP: Joshua Hough Psychiatrist: Toni
--- NOTE | 2018-12-16 10:36 | NUR ---
LYDIA faxed updated pt. notes to Osvaldo, Admissions at [facility].
--- NOTE | 2018-12-16 13:20 | NUR ---
Patient in dining room when assumed care. Patient pleasant and cooperative with medication administration. No behaviors noted at this time. Assessment per charting. Will continue to monitor.
[2018-12-16 16:18] VITALS: BP 133/83
--- NOTE | 2018-12-16 19:39 | PN ---
DATE: 12/14/2018 This late entry of 12/14/2018 covers elements not covered in my initial note. SUBJECTIVE: I met with the patient in the evening of 12/14/2018. Per WANG Yap, the patient slept 7-1/4 hours previous night. She has had no hallucinations and tends to still remains withdrawn, spends much time in bed. Valproic acid level 77, therapeutic and she complains of being tired. REVIEW OF SYSTEMS: No CV, , pulmonary, eye system symptoms on review. MENTAL STATUS EXAM: Reasonably oriented. Speech has some latency, coherent. Abstraction fair, computation impaired, language function intact, attention span short. Mood and affect withdrawn. No suicidal or homicidal ideation. Hallucinations are better. LABORATORY DATA: Reviewed. IMPRESSION: Unchanged from initial note. PLAN: No change from initial note. MAN Sukhi PIEDRA MD DR: WEI/chico JOB#: [id number] / [id number]
--- NOTE | 2018-12-16 19:41 | PN ---
DATE: 12/15/2018 PSYCHIATRIC PROGRESS NOTE This late entry of 12/15/2018 covers elements not covered in my initial note. SUBJECTIVE: I met with the patient in the evening of 12/15/2018 and staffed at a treatment team meeting with the entire team in the morning and the patient attended this lengthy treatment team meeting. The patient is sleeping 6-7 hours. Appetite 75-100%. She states that hallucinations are better. She is less tired, coming out more for groups. REVIEW OF SYSTEMS: No CV, , pulmonary, eye, ENT system symptoms on review. MENTAL STATUS EXAM: Oriented to herself and situation. Speech has some latency, coherent. Abstraction fair, computation impaired, language function intact, attention span short. Mood and affect less withdrawn. LABORATORY DATA: Reviewed. IMPRESSION: Unchanged from initial note. PLAN: No change from initial note. MAN Sukhi PIEDRA MD DR: WEI/chico JOB#: [id number] / [id number]
[2018-12-16] MEDS: MIRTAZAPINE 7.5 MG TABLET. PO SCH (20:31)
[2018-12-16] MEDS: LATANOPROST 0.005% OPHTH SOLUTION 2.5ML BOTTLE. OU SCH (20:31)
[2018-12-16] MEDS: DIVALPROEX ER 250 MG TAB.ER.24H. PO SCH (20:31)
[2018-12-16] MEDS: MELATONIN 3 MG TABLET PO SCH (20:32)
--- NOTE | 2018-12-16 21:18 | NUR ---
Nursing Note: Assumed care of pt. this evening, she was lying in her bed. She has been calm, cooperative, and withdrawn to room. She has been compliant with taking her HS meds whole. No behaviors noted at this time.
--- NOTE | 2018-12-16 21:34 | PDOC ---
Exam Note: Aldo Note: Please also refer to the separate dictated note~for this date of service dictated separately.~Patient seen individually. Discussed the patient with Nursing staff reviewed the chart.~Reviewed interim history and current functioning. Reviewed vital signs,~Labs/ Radiology~and current medications noted below. Continue current treatment with the changes noted in the dictated addendum note Assessment: Vital Signs/I&O: Vital Signs Date Time Temp Pulse Resp B/P (MAP) Pulse Ox O2 Delivery O2 Flow Rate FiO2 12/16/18 16:18 97.9 78 18 133/83 (100) 95 12/15/18 16:49 94.0 I & O 12/15/18 12/15/18 12/16/18 15:00 23:00 07:00 Intake Total 960 ml 360 ml Balance 960 ml 360 ml Current Medications: I have reviewed the current psychotropics carefully including drug interactions. Risk benefit ratio favors no change other than as noted in my dictated progress note. Diagnosis: Problems: (1) Anxiety disorder (2) Schizoaffective disorder, chronic condition with acute exacerbation (3) Schizophrenia, paranoid, chronic with acute exacerbation (4) Impulse control disorder KJ PIEDRA MD Dec 16, 2018 21:34
[2018-12-16] MEDS: DONEPEZIL HCL 5 MG TABLET. PO SCH (23:43)
[2018-12-17] MEDS: LEVOTHYROXINE 50 MCG TABLET PO SCH (05:34)
[2018-12-17 05:42] VITALS: BP 106/73
[2018-12-17] MEDS: metFORMIN 500 MG TABLET PO SCH ×2 (07:43→16:10)
[2018-12-17] MEDS: PALIPERIDONE 6 MG TAB.ER.24. PO SCH (07:43)
[2018-12-17] MEDS: ASPIRIN ENTERIC COATED 81 MG TABLET.DR. PO SCH (07:43)
[2018-12-17] MEDS: COLESTIPOL HCL 1 GM TABLET PO SCH ×2 (07:43→19:42)
[2018-12-17] MEDS: POLYETHYLENE GLYCOL 3350 17 GM PACKET. PO SCH (07:43)
[2018-12-17] MEDS: OMEGA-3 FATTY ACIDS/FISH OIL 1,000 MG CAPSULE. PO SCH ×2 (07:43→19:41)
[2018-12-17] MEDS: POLYVINYL ALCOHOL/POVIDONE/PF OPHTH SOLUTION DROPERETTE. OU SCH ×2 (07:44→19:41)
--- NOTE | 2018-12-17 11:18 | NUR ---
PATIENT LOCATED IN ROOM AT THE TIME OF ASSESSMENT AND MEDICATION ADMINISTRATION. PATIENT IS WITHDRAWN TO ROOM. SHE DID EAT BREAKFAST. PATIENT IS SLEEPY TODAY SPENDING MOST OF THE DAY IN BED SO FAR. PATIENT DENIES HALLUCINATIONS AND SI AT THIS TIME. PATIENT IS CURRENTLY RESTING IN BED WILL CONTINUE TO MONITOR,
[2018-12-17 15:39] VITALS: BP 110/72
[2018-12-17] MEDS: MIRTAZAPINE 7.5 MG TABLET. PO SCH (19:41)
[2018-12-17] MEDS: MELATONIN 3 MG TABLET PO SCH (19:41)
[2018-12-17] MEDS: DONEPEZIL HCL 5 MG TABLET. PO SCH (19:41)
[2018-12-17] MEDS: LATANOPROST 0.005% OPHTH SOLUTION 2.5ML BOTTLE. OU SCH (19:42)
[2018-12-17] MEDS: DIVALPROEX ER 250 MG TAB.ER.24H. PO SCH (19:42)
--- NOTE | 2018-12-17 20:06 | PN ---
DATE: 12/16/2018 This late entry of 12/16/2018 covers elements not covered in my initial note. SUBJECTIVE: I met with the patient in the evening of 12/16/2018. Per Danita, nursing staff, the patient slept 9-1/4 hours previous night, has had a good day. She had some family visit. REVIEW OF SYSTEMS: No CV, , pulmonary, eye, ENT system symptoms on review. MENTAL STATUS EXAM: Reasonably oriented as I met with her in her room, somewhat withdrawn. Speech moderate latency, often responses monosyllabic. Abstraction fair, computation impaired, language function intact. Mood and affect, despite the above, is improved. LABORATORY DATA: Reviewed. IMPRESSION: Unchanged from initial note. No clear hallucinations noted. PLAN: No change from initial note. MAN Sukhi PIEDRA MD DR: WEI/chico JOB#: [id number] / [id number]
--- NOTE | 2018-12-17 21:51 | PDOC ---
Exam Note: Aldo Note: Please also refer to the separate dictated note~for this date of service dictated separately.~Patient seen individually. Discussed the patient with Nursing staff reviewed the chart.~Reviewed interim history and current functioning. Reviewed vital signs,~Labs/ Radiology~and current medications noted below. Continue current treatment with the changes noted in the dictated addendum note Assessment: Vital Signs/I&O: Vital Signs Date Time Temp Pulse Resp B/P (MAP) Pulse Ox O2 Delivery O2 Flow Rate FiO2 12/17/18 15:39 97.2 82 18 110/72 (85) 96 Room Air 12/15/18 16:49 94.0 I & O 12/16/18 12/16/18 12/17/18 15:00 23:00 07:00 Intake Total 600 ml 600 ml Balance 600 ml 600 ml Current Medications: I have reviewed the current psychotropics carefully including drug interactions. Risk benefit ratio favors no change other than as noted in my dictated progress note. Diagnosis: Problems: (1) Anxiety disorder (2) Schizoaffective disorder, chronic condition with acute exacerbation (3) Schizophrenia, paranoid, chronic with acute exacerbation (4) Impulse control disorder KJ PIEDRA MD Dec 17, 2018 21:51
--- NOTE | 2018-12-17 22:44 | NUR ---
Pt withdrawn to her room all night. Compliant with whole medications. Denies auditory hallucinations.
[2018-12-18] MEDS ORDERED: DIVA500T4 PO (00:58)
[2018-12-18] MEDS ORDERED: LOPE2TAB27 PO (00:58)
[2018-12-18] MEDS ORDERED: MAG355OR17 PO (00:59)
[2018-12-18] MEDS ORDERED: MAGN2400 PO (00:59)
[2018-12-18] MEDS ORDERED: METH28OI2 TP (01:00)
[2018-12-18] MEDS ORDERED: MIRT15TA3 PO (01:01)
[2018-12-18] MEDS ORDERED: TRAZ-120 PO (01:02)
[2018-12-18] MEDS: LEVOTHYROXINE 50 MCG TABLET PO SCH (05:50)
[2018-12-18 06:20] VITALS: BP 102/62
[2018-12-18] MEDS: ASPIRIN ENTERIC COATED 81 MG TABLET.DR. PO SCH (07:30)
[2018-12-18] MEDS: OMEGA-3 FATTY ACIDS/FISH OIL 1,000 MG CAPSULE. PO SCH ×2 (07:30→20:14)
[2018-12-18] MEDS: metFORMIN 500 MG TABLET PO SCH ×2 (07:31→17:17)
[2018-12-18] MEDS: POLYETHYLENE GLYCOL 3350 17 GM PACKET. PO SCH (07:31)
[2018-12-18] MEDS: POLYVINYL ALCOHOL/POVIDONE/PF OPHTH SOLUTION DROPERETTE. OU SCH ×2 (07:31→20:14)
[2018-12-18] MEDS: PALIPERIDONE 6 MG TAB.ER.24. PO SCH (07:32)
[2018-12-18] MEDS: COLESTIPOL HCL 1 GM TABLET PO SCH ×2 (07:32→20:15)
[2018-12-18 16:34] VITALS: BP 116/79
[2018-12-18] MEDS: MELATONIN 3 MG TABLET PO SCH (20:14)
[2018-12-18] MEDS: MIRTAZAPINE 7.5 MG TABLET. PO SCH (20:14)
[2018-12-18] MEDS: DIVALPROEX ER 250 MG TAB.ER.24H. PO SCH (20:14)
[2018-12-18] MEDS: DONEPEZIL HCL 5 MG TABLET. PO SCH (20:14)
[2018-12-18] MEDS: LATANOPROST 0.005% OPHTH SOLUTION 2.5ML BOTTLE. OU SCH (20:15)
--- NOTE | 2018-12-18 22:25 | NUR ---
Pt has been laying in her bed this evening. Compliant with medications and shower. States she is ready to discharge tomorrow.
[2018-12-19] MEDS ORDERED: MAGN64TA6 PO (00:19)
[2018-12-19] MEDS ORDERED: CHOL10003 PO (00:20)
[2018-12-19] MEDS: LEVOTHYROXINE 50 MCG TABLET PO SCH (04:56)
[2018-12-19 05:31] VITALS: BP 111/72
[2018-12-19] MEDS: OMEGA-3 FATTY ACIDS/FISH OIL 1,000 MG CAPSULE. PO SCH (07:12)
[2018-12-19] MEDS: POLYVINYL ALCOHOL/POVIDONE/PF OPHTH SOLUTION DROPERETTE. OU SCH (07:12)
[2018-12-19] MEDS: ASPIRIN ENTERIC COATED 81 MG TABLET.DR. PO SCH (07:12)
[2018-12-19] MEDS: metFORMIN 500 MG TABLET PO SCH (07:12)
[2018-12-19] MEDS: POLYETHYLENE GLYCOL 3350 17 GM PACKET. PO SCH (07:12)
[2018-12-19] MEDS: COLESTIPOL HCL 1 GM TABLET PO SCH (07:13)
[2018-12-19] MEDS: PALIPERIDONE 6 MG TAB.ER.24. PO SCH (07:13)
--- NOTE | 2018-12-19 08:24 | NUR ---
[facility] IN [facility]INING ROOM AT THE TIME OF ASSESSMENT AND MEDICATION ADMINISTRATION. PATIENT IS WITHDRAWN TO ROOM. SHE DID EAT BREAKFAST. PATIENT DENIES HALLUCINATIONS AND SI AT THIS TIME. PATIENT IS CURRENTLY RESTING IN BED WILL CONTINUE TO MONITOR,
[2018-12-19] MEDS ORDERED: MAGNESIUM CHLORIDE ER 64 MG TABLET.ER PO SCH (09:00)
[2018-12-19] MEDS ORDERED: CHOLECALCIFEROL (VITAMIN D3) 1,000 UNIT TABLET PO SCH (09:00)
--- NOTE | 2018-12-19 09:55 | NUR ---
LYDIA contacted Iris, Ratoprinter at [facility], to discuss pt. wishes to change her DPOA and if there was a way pt. would be able to do guided meditation once she returns. Iris reports pt. has mentioned changing her DPOA before but has yet to choose another individual to be her DPOA. Iris will also try to get a Nixle phone for pt., so she is able to listen to guided meditation.
--- NOTE | 2018-12-19 13:26 | NUR ---
Transition Record was faxed to follow-up provider with the following elements: Reason for admission, procedures, tests, principal diagnosis, pending studies, patient instructions, 05/10 contact information for unit, phone number to obtain pending test results, plan for follow-up care, physician follow-up, advanced directive information, and medication list with dose, duration and instructions. This information was included in the following documents: History and physical, lab results, study results, progress notes, social work planning form, DC instruction form, patient visit summary, and medication reconciliation form. Date & time record faxed:12/19/18 [id number] Record faxed to: [facility] Record discussed with/ report given to: Beatrice HAWKINS
--- NOTE | 2018-12-19 14:09 | PN ---
DATE: 12/18/2018 SUBJECTIVE: The patient was seen today, met with the staff, chart reviewed and also covering for Dr. Scott. Staff reports no major behavior problems. The patient tends to stay in bed most of the time. The patient continues to have racing thoughts and denies of any psychotic symptoms, but admits she has been hearing voices before coming here and the voices telling her to kill herself and others and also she was not able to sleep prior to coming here. The patient also stated she was hospitalized for almost 6 months in 70s with similar problems and also has a diagnosis of tardive dyskinesia. The patient states she is a former smoker. Staff reports no major behavior problems. OBSERVATION: VITAL SIGNS: Temperature 97, blood pressure 102/62, pulse 75, respiration 18, O2 sat 92%. Slept about 8 hours last night. The patient's appetite is normal. LABORATORY DATA: The patient's lab reviewed. The patient's labs are within the normal range. CURRENT MEDICATIONS: The patient's current medications include mirtazapine 7.5 mg at night, Depakote 750 mg at night, trazodone 50 mg at night p.r.n., paliperidone 6 mg daily, melatonin 6 mg at night, Aricept 5 mg at night. The patient is not having any side effects to medications. ASSESSMENT: Schizoaffective disorder, bipolar type, psychotic features; anxiety disorder, unspecified. PLAN: To continue with the current treatment plan. BOB SOLANO MD DR: JOSEFINA/chico JOB#: [id number] / [id number] YESENIA
--- NOTE | 2018-12-20 00:07 | DS ---
DATE OF DISCHARGE: 12/19/2018 FINAL DIAGNOSES: AXIS I: 1. Schizoaffective disorder, bipolar type, mixed with psychotic features. 2. Anxiety disorder, unspecified. 3. Impulse control disorder, unspecified. AXIS II: None. AXIS III: Diabetes mellitus, hypertension, osteoarthritis, hyperlipidemia, emphysema, and history of tardive dyskinesia secondary to long-term exposure to neuroleptics. REASON FOR ADMISSION: This is a 78-year-old female who was admitted [facility] from [facility] where she presented from [facility] because of increasing auditory hallucinations, which are command in nature, telling her to kill herself and others. The patient also was not able to sleep for several days and also extreme anxiety. HISTORY OF PRESENT ILLNESS: The patient apparently has a long history of psychiatric issues diagnosed with schizoaffective disorder versus schizophrenia and also chronic paranoia. The patient was living at home with her daughter and recently moved to [facility] because she needed more supervision. The patient's symptoms have gotten worse over the past week including active hallucinations, which are command in nature, telling her to hurt herself and others. The patient also was not sleeping well. The patient apparently has a long history of psychiatric illness. Apparently, she was hospitalized in 70[facility] to [facility] where she stayed for almost 6 months. The patient has been on psychotropic drugs for at least the past 25 years. HOSPITAL COURSE: The patient had a physical exam, routine lab work including CBC, chem profile and urinalysis. The patient's white cell count was slightly elevated at 14.5 and at discharge within normal range. The patient's hemoglobin was 10.9. The patient's glucose was stabilized. The patient's hemoglobin A1c was 6. The patient's triglycerides were 217, cholesterol 204, LDL 115, and HDL 46. The patient's Depakote level at the time of discharge was 77. The patient did fairly well during her stay here. She participated in most of the activities. The patient did not have any falls, did not have any major side effects to the medications. AFTERCARE PLANS: The patient at the time of discharge medically stable. The patient's behavior has improved. Her speech was clear, spontaneous with normal rate and rhythm. Her affect and mood showed she was not depressed. The patient's symptoms were ____ controlled. The patient is able to relate well to others. The patient did not show any cognitive deficits. She was oriented to time, place and person. Her memory is intact for both past and present. Judgment intact. Insight limited. The patient was treated with mirtazapine 7.5 mg at night, Depakote 750 mg at night, Invega 6 mg daily, melatonin 6 mg at night, Aricept 5 mg at night, and the patient also received p.r.n. medications. She was also on aspirin 81 mg daily, levothyroxine 50 mcg daily, she was also on Glucophage 500 mg b.i.d. with meals. She was also on albuterol inhaler. The patient at the time of discharge is medically stable. The patient will be returning to [facility] and she will be followed up by the psychiatrist there and the primary care doctor and the recommendation to continue the above medications. BOB SOLANO MD DR: JOSEFINA/chico JOB#: [id number] / [id number]
--- NOTE | 2018-12-21 05:11 | PN ---
DATE: 12/17/2018 PSYCHIATRIC PROGRESS NOTE This late entry 12/17/2018 covers elements not covered in my initial note. SUBJECTIVE: I met with the patient in the morning. According to WANG Severino, the patient slept 7-1/4 hours previous night. She has been pleasant, still withdrawn to her room, which is where I met with her, compliant with medications. REVIEW OF SYSTEMS: Positive for some tiredness. No CV, , pulmonary, eye, ENT system symptoms on review. MENTAL STATUS EXAM: Reasonably oriented. Speech moderate latency, coherent, low in volume, but quite interactive with me individually. Abstraction fair, computation impaired, language function intact. Mood and affect withdrawn, but improved. LABORATORY DATA: Reviewed. IMPRESSION: Schizoaffective disorder, bipolar type, mixed with psychotic features. Mild cognitive impairment. PLAN: No change from initial note. MAN Sukhi PIEDRA MD DR: WEI/chico JOB#: [id number] / [id number]
== END 2018-12-19 13:26 | DRG 885 ==
LOC: GEROPSY 12-02 09:20
PROVIDERS: ADMIT Psychiatry & Neurology Psychiatry; ATTEND Psychiatry & Neurology Psychiatry
DX: F25.0 Schizoaffective disorder, bipolar type (principal); F63.9 Impulse disorder, unspecified; I10 Essential (primary) hypertension; F03.90 Unspecified dementia, unspecified severity, without behavioral disturbance, psychotic disturbance, mood disturbance, and anxiety; F41.1 Generalized anxiety disorder; E78.5 Hyperlipidemia, unspecified; J43.9 Emphysema, unspecified; E11.36 Type 2 diabetes mellitus with diabetic cataract; F17.200 Nicotine dependence, unspecified, uncomplicated; G24.01 Drug induced subacute dyskinesia; G47.00 Insomnia, unspecified; M19.90 Unspecified osteoarthritis, unspecified site; Z87.828 Personal history of other (healed) physical injury and trauma; Z79.899 Other long term (current) drug therapy; Z79.84 Long term (current) use of oral hypoglycemic drugs; Z79.82 Long term (current) use of aspirin
CPT/HCPCS: 36415; 80053; 80061; 80164; 82306; 83036; 83540; 83550; 83735; 84436; 84443; 84480; 85025; 86592; 90471; 90686; 94640; J7620